=== PATIENT | female | born 1985 | race Caucasian/White ===

== ENCOUNTER 2016-10-24 00:10 | Outpatient (CLI) | payer OTHER, MEDICAID ==
[2016-10-24 00:39] LABS: APPEARANCE,URINE CLOUDY; BILIRUBIN,URINE NEGATIVE (NEGATIVE); GLUCOSE, URINE NEGATIVE (NEGATIVE); KETONES,URINE NEGATIVE (NEGATIVE); LEUKOCYTE ESTERASE,URINE LARGE (NEGATIVE); NITRITE,URINE NEGATIVE (NEGATIVE); PROTEIN,URINE NEGATIVE (NEGATIVE); URINE SPECIFIC GRAVITY 1.003; UROBILINOGEN,URINE NEGATIVE mg/dL (<2.0)
[2016-10-24 00:55] LABS: URINE BARBITURATES SCREEN NEGATIVE; URINE METHADONE SCREEN NEGATIVE; URINE OPIATES LOW NEGATIVE; URINE PHENCYCLIDINE SCREEN NEGATIVE
--- NOTE | 2016-10-24 02:27 | Non Stress Test Report ---
Non Stress Test Datetime Report Generated by CPN: 10/24/2016 02:26 DEMOGRAPHIC EGA NST: 37.1 INDICATION Indication for Study: Other Indication for Study (NST) Other: labor check URINE RESULTS Urine Protein, NST: Negative Urine Ketones - NST: Negative Urine Glucose - NST: Negative Urine Blood - NST: Negative MONITORING Monitor Explained: Monitor Explained; Test Explained; Patient Verbalized Understanding Time on Monitor: 10/24/2016 00:26 Time off Monitor: 10/24/2016 01:57 NST Duration: 91 NST INTERVENTIONS NST Interventions: PO Hydration; Reposition Patient; Vibroacoustic Stim; Other NST Interventions Other: juice, popsicle BABY A: [id number] BABY A Movement : Present Contraction Frequency : 1.5-8 FHR Baseline : 120 Accelerations : 15X15 Decelerations : None Variability : Moderate 6-25bpm NST Review: Meets Criteria for Reactive NST NST Review and Verified By : Laurie Ramey RN NST Results: Reactive NST REPORT Report Trigger: Send Report
--- NOTE | 2016-10-24 04:46 | L&D Current Admission ---
Current Admit Datetime Report Generated by CPN: 10/24/2016 04:45 ADMISSION INFORMATION Chief Complaint: Contractions (10/24/2016 00:35:Sirena Avendaño)
--- NOTE | 2016-10-24 04:46 | L&D General Admission ---
General Admit Datetime Report Generated by CPN: 10/24/2016 04:45 INFORMATION Patient Age: 31 (10/24/2016 00:11:QS system process) EDC: 11/13/2016 00:00 (10/24/2016 00:17:Sirena Avendaño) EDC: 11/13/2016 00:00 (10/24/2016 00:17:Amanda Ramey RN) EDC per Ultrasound: 11/13/2016 00:00 (10/24/2016 00:17:Amanda Ramey RN) : 4 (10/24/2016 00:17:Amanda Ramey RN) Para: 2 (10/24/2016 00:17:Amanda Ramey RN) Term: 2 (10/24/2016 00:17:Sirena Avendaño) : 0 (10/24/2016 00:17:Sirena Avendaño) Spontaneous Abortions: 1 (10/24/2016 00:17:Sirena Avendaño) Livin (10/24/2016 00:17:Sirena Avendaño) Cesareans: 0 (10/24/2016 00:17:Sirena Avendaño) VBACs: 0 (10/24/2016 00:17:Sirena Avednaño) Ectopic: 0 (10/24/2016 00:17:Sirena Avendaño) Multiple Births: 0 (10/24/2016 00:17:Sirena Avendaño) Baby, Number in Womb: 1 (10/24/2016 00:17:Sirena Avendaño) CARE Primary Hr Advisor: [facility] (10/24/2016 00:17:Sirena Avendaño) Adequate Care: Yes (10/24/2016 00:17:Sirena Avendaño) Height (in): 67 (10/24/2016 00:23:QS system process) ALLERGIES Medication Allergy: No (10/24/2016 00:17:Sirena Avendaño) Medication Allergies: No Known Allergies (09/10/2016) (10/24/2016 00:11:QS system process) Latex Allergy: No Latex Allergies (10/24/2016 00:17:Sirena Avendaño) Food Allergies: none (10/24/2016 00:17:Sirena Avendaño) Environmental Allergies: none2 (10/24/2016 00:17:Sirena Avendaño) COMMUNICATION Primary Language: Monegasque (10/24/2016 00:17:Sirena Avendaño) Medical Tx Preferred Language: Monegasque (10/24/2016 00:17:Sirena Avendaño) DEMOGRAPHICS Address: [address] [place] [id number] (10/24/2016 00:11:QS system process) Zipcode: [address] (10/24/2016 00:11:QS system process) Home (10/24/2016 00:11:QS system process) Work (10/24/2016 00:11:QS system process) SSN: [id number] (10/24/2016 00:11:QS system process) Next of Kin Name: CLIFF SILVA (10/24/2016 00:11:QS system process) Next of Kin (10/24/2016 00:11:QS system process) Next of Kin Relationship: SPO (10/24/2016 00:11:QS system process) Date of : 1985 (10/24/2016 00:11:QS system process) Marital Status: (10/24/2016 00:11:QS system process) Sex: Female (10/24/2016 00:11:QS system process) Race: (10/24/2016 00:11:QS system process) Ethnicity: Non- or (10/24/2016 00:11:QS system process) Orthodox: Other (10/24/2016 00:11:QS system process) DRUG AND ALCOHOL USE Alcohol: No (10/24/2016 00:17:Sirena Avendaño) Cigarettes: Current Everyday Smoker. [id number] (10/24/2016 00:17:Sirena Avendaño) Average Cigarettes Smoked: 5 - 10 per day (10/24/2016 00:17:Sirena Avendaño) Advised to Stop Smoking: Yes (10/24/2016 00:17:Sirena Avendaño) Marijuana: No (10/24/2016 00:17:Sirena Avendaño) Cocaine: No (10/24/2016 00:17:Sirena Avendaño) Other Illicit Drugs: No (10/24/2016 00:17:Sirena Avendaño) VACCINE HISTORY Influenza Vaccine: No (10/24/2016 00:17:Sirena Avendaño) Pneumococcal Vaccine: No (10/24/2016 00:17:Sirena Avendaño) Tetanus Vaccine: No (10/24/2016 00:17:Sirena Avendaño) Tdap Vaccine: Yes (10/24/2016 00:17:Sirena Avendaño) Tdap Date: 2015 (10/24/2016 00:17:Sirena Avendaño) Hepatitis B Vaccine: No (10/24/2016 00:17:Sirena Avendaño) Animal Husbandry Teacher: [facility] (10/24/2016 00:17:Sirena Avendaño) Feeding Preference: Both (10/24/2016 00:17:Sirena Avendaño) Circumcision: Yes (10/24/2016 00:17:Sirena Avendaño) Classes Attended: No (10/24/2016 00:17:Sirena Avendaño) Tubal Ligation: No (10/24/2016 00:17:Sirena Avendaño) Tubal Authorization Signed: N/A (10/24/2016 00:17:Sirena Avendaño) Consent: N/A (10/24/2016 00:17:Sirena Avendaño) Consent Signed: N/A (10/24/2016 00:17:Sirena Avendaño) Pain Management Plans: Epidural (10/24/2016 00:17:Sirena Avendaño) Plans for Labor and Delivery: None (10/24/2016 00:17:Sirena Avendaño) Support Person: slick (10/24/2016 00:17:Sirena Avendaño) Support Person Relationship: (10/24/2016 00:17:Sirena Avendaño) Other Relationship: friend (10/24/2016 00:17:Sirena Avendaño) Cultural/Spritual Practice: N/A (10/24/2016 00:17:Sirenanieves Avendaño) Spir/Cult Dietary Needs: N/A (10/24/2016 00:17:Sirena Avendaño) LIVING SITUATION/DISCHARGE PLAN Living Arrangements: House (10/24/2016 00:17:Sirena Avendaño) Adequate Access to:: Electric; Heat; Refrigeration; Plumbing/Running water; Phone; Transportation (10/24/2016 00:17:Sirena Avendaño) WIC Program: Yes (10/24/2016 00:17:Sirena Avendaño) Discharge Instrument 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 Person: cliff- (10/24/2016 00:17:Sirena Avendaño) Person to Help after Discharge: cliff- (10/24/2016 00:17:Sirena Avendaño) Currently Using Commun Resources: Yes (10/24/2016 00:17:Sirena Avendaño) Specify Current Resource Used: medicaid (10/24/2016 00:17:Sirena Avendaño) Car Seat for Discharge: Yes (10/24/2016 00:17:Sirenanieves Avendaño) LABS Blood Type: O Positive (10/24/2016 00:17:Amanda Ramey RN) Antibody Screen: negative (10/24/2016 00:17:Amanda Ramey RN) Group Beta Strep: negative (10/24/2016 00:17:Amanda Ramey RN) Gonorrhea: Negative (10/24/2016 00:17:Amanda Ramey RN) Chlamydia: Negative (10/24/2016 00:17:Amanda Ramey RN) RPR/VDRL: Nonreactive (10/24/2016 00:17:Amanda Ramey RN) HIV Exposure Test: Negative (10/24/2016 00:17:Amanda Ramey RN) Hepatitis B: Negative (10/24/2016 00:17:Amanda Ramey RN) Rubella: Immune (10/24/2016 00:17:Amanda Ramey RN) OB/PREVIOUS HISTORY Previous Procedures: Ultrasound; NST (10/24/2016 00:17:Sirena Avendaño) Current Procedures: Ultrasound; NST (10/24/2016 00:17:Sirena Avendaño) History of Previous : No (10/24/2016 00:17:Sirena Avendaño) History of Gestational Diabetes: Yes (10/24/2016 00:17:Sirena Avendaño) History of PIH: No (10/24/2016 00:17:Sirena Avendaño) History of Incompetent Cervix: No (10/24/2016 00:17:Sirena Avendaño) History of Placenta Previa/Abrup: Yes (10/24/2016 00:17:Sirena Avendaño) History of Macrosomia: No (10/24/2016 00:17:Sirena Avendaño) History of IUGR: No (10/24/2016 00:17:Sirena Avendaño) History of Hemorrhage: No (10/24/2016 00:17:Sirena Avendaño) History of Loss/Stillborn: No (10/24/2016 00:17:Sirena Avendaño) History of : No (10/24/2016 00:17:Sirena Avendaño) History of D (Rh) Sensitization: No (10/24/2016 00:17:Sirena Avendaño) History Recurrent Loss/Stillborn: No (10/24/2016 00:17:Sirena Avendaño) History Depression/PP Depression: Yes (10/24/2016 00:17:Sirena Avendaño) History of Uterine Anomaly/JT: No (10/24/2016 00:17:Sirena Avendaño) History of Infertility: No (10/24/2016 00:17:Sirena Avendaño) History of ART Treatment: No (10/24/2016 00:17:Sirena Avendaño) History of JT: No (10/24/2016 00:17:Sirena Avendaño) Comments Obstetrical History: G1: 2004 or 2005 3 month demise G2: 39 wks 2005 G3: VD 39 wks 2009 G4: Current, GDM, previa, placenta moved to 2.6 cm away from cx as of 09/22, GDM (10/24/2016 00:17:Amanda Ramey RN) MEDICAL HISTORY Med Hx Diabetes: Yes (10/24/2016 00:17:Sirena Avendaño) Diabetes Type: Gestational Diabetes (10/24/2016 00:17:Sirena Avendaño) Med Hx Hypertension: No (10/24/2016 00:17:Sirena Avendaño) Med Hx Heart Disease: No (10/24/2016 00:17:Sirena Avendaño) Med Hx Autoimmune Disorder: No (10/24/2016 00:17:Sirena Avendaño) Med Hx Kidney Disease/UTI: No (10/24/2016 00:17:Sirena Avendaño) Med Hx Neurologic/Epilepsy: No (10/24/2016 00:17:Sirena Avendaño) Med Hx Psychiatric Disorders: No (10/24/2016 00:17:Sirena Avendaño) Med Hx Hepatitis/Liver Disease: No (10/24/2016 00:17:Sirena Avendaño) Med Hx Varicosities/Phlebitis: No (10/24/2016 00:17:Sirena Avendaño) Med Hx Thyroid Dysfunction: No (10/24/2016 00:17:Sirena Avendaño) Med Hx Trauma/Violence: No (10/24/2016 00:17:Sirena Avendaño) Med Hx Blood Transfusion: No (10/24/2016 00:17:Sirena Avendaño) Med Hx Pulmonary (Asthma,TB): No (10/24/2016 00:17:Sirena Avendaño) Med Hx Breast: No (10/24/2016 00:17:Sirena Avendaño) Med Hx PLASTIC MAKER Surgery: No (10/24/2016 00:17:Sirena Avendaño) Med Hx Hospitalization/Surgery: No (10/24/2016 00:17:Sirena Avendaño) Med Hx Anesthetic Complications: No (10/24/2016 00:17:Sirena Avendaño) Med Hx Abnormal Pap Smear: Yes (10/24/2016 00:17:Amanda Ramey RN) Med Hx Abnormal Pap Smear: No (10/24/2016 00:17:Sirena Avendaño) Other Medical Diseases: No (10/24/2016 00:17:Sirena Avendaño) Med Hx Significant Family Hx: No (10/24/2016 00:17:Sirena Avendaño) Details of Med/Surg Hx: LEEP 2013 (10/24/2016 00:17:Amanda Ramey RN) Details of Med/Surg Hx: herpes genital warts (10/24/2016 00:17:Sirena Avendaño) INFECTIOUS HISTORY Inf Hx Gonorrhea: No (10/24/2016 00:17:Sirena Avendaño) Inf Hx Chlamydia: No (10/24/2016 00:17:Sirena Avendaño) Inf Hx Syphilis: No (10/24/2016 00:17:Sirenanieves Avendaño) Inf Hx HIV/AIDS: No (10/24/2016 00:17:Sirenanieves Avendaño) Inf Hx Human Papilloma Virus: No (10/24/2016 00:17:Sirenanieves Avendaño) Inf Hx Pt/Partner Genital Herpes: Yes (10/24/2016 00:17:Amanda Ramey RN) Inf Hx Tuberculosis/Exposure: No (10/24/2016 00:17:Sirenanieves Avendaño) Inf Hx Hepatitis B,C: No (10/24/2016 00:17:Sirenanieves Avendaño) Inf Hx Rash or Viral Illness: No (10/24/2016 00:17:Sirenanieves Avendaño) Details of Infectious Hx: Hx HSV, genital warts and condyloma covering labia/rectum/perineum (10/24/2016 00:17:Amanda Ramey RN) GENETIC HISTORY Gen Hx Age >=35 at AMY: No (10/24/2016 00:17:Sirena Avendaño) Gen Hx Thalassemia: No (10/24/2016 00:17:Sirena Avendaño) Gen Hx Congenital Heart Defect: No (10/24/2016 00:17:Sirena Avendaño) Gen Hx Neural Tube Defect: No (10/24/2016 00:17:Sirena Avendaño) Gen Hx Down's Syndrome: No (10/24/2016 00:17:Sirena Avendaño) Gen Hx Luis Alfredo-Sachs: No (10/24/2016 00:17:Sirena Avendaño) Gen Hx Kwasi: No (10/24/2016 00:17:Sirena Avendaoñ) Gen Hx Familial Dysautonomia: No (10/24/2016 00:17:Sirena Avendaño) Gen Hx Sickle Cell Disease/Trait: No (10/24/2016 00:17:Sirena Avendaño) Gen Hx Hemophilia/Blood Disorder: No (10/24/2016 00:17:Sirena Avendaño) Gen Hx Muscular Dystrophy: No (10/24/2016 00:17:Sirena Avendaño) Gen Hx Cystic Fibrosis: No (10/24/2016 00:17:Sirena Avendaño) Gen Hx Huntingtons Chorea: No (10/24/2016 00:17:Sirena Avendaño) Gen Hx Mental Retardation/Autism: No (10/24/2016 00:17:Sirena Avendaño) Gen Hx Tested for Fragile X: No (10/24/2016 00:17:Sirena Avendaño) Gen Hx Other Inher/Chromosomal: No (10/24/2016 00:17:Sirena Avendaño) Gen Hx Maternal Metabolic DO: No (10/24/2016 00:17:Sirena Avendaño) Gen Hx Pt Father or FOB Defect: No (10/24/2016 00:17:Sirena Avendaño) Gen Hx Other Genetic History: No (10/24/2016 00:17:Sirena Avendaño) Gen Hx Drugs/Meds since LMP: No (10/24/2016 00:17:Sirena Avendaño)
--- NOTE | 2016-10-24 04:46 | Antepartum Discharge Summary ---
Antepartum DC Datetime Report Generated by CPN: 10/24/2016 04:45 DIET/ACTIVITY/RESTRICTIONS Diet: Regular (10/24/2016 02:17:Katherine Dionisio, RN) Activity: Normal Activity (10/24/2016 02:17:Katherine Dionisio, RN) TEACHING/INSTRUCTIONS/REFERRALS Instructions Given To: patient (10/24/2016 02:17:Katherine Dionisio, RN) Instructions Understood: Patient Verbalized Understanding; Support Person Verbalized Understanding (10/24/2016 02:17:Katherine Nichole RN) Referrals: None (10/24/2016 02:17:Katherine Nichole RN) Educational Materials- Other: care notes on kick counts and the labor process (10/24/2016 02:17:Katherine Nichole RN) DISCHARGE INFORMATION Discharged AMA: No (10/24/2016 02:17:Katherine Nichole RN) Discharge Date/Time: 10/24/2016 02:07 (10/24/2016 02:17:Katherine Nichole RN) Discharged To: Home (10/24/2016 02:17:Katherine Nichole RN) Discharge Provider Name: Dr. Raza (10/24/2016 02:17:Katherine Nichole RN) Accompanied By: friend (10/24/2016 02:17:Katherine Nichole RN) Discharge Method: Ambulatory (10/24/2016 02:17:Katherine Nichole RN) Condition: Stable (10/24/2016 02:17:Katherine Nichole RN) FOLLOW UP INFORMATION Follow Up With: [facility] (10/24/2016 02:17:Katherine Nichole RN) Follow Up On: As Scheduled (10/24/2016 02:17:Katherine Nichole RN) Follow Up Phone Number: [facility] - (10/24/2016 02:17:Katherine Nichole RN) Comments: Pt. d/c to home ambulatory and in stable condition. Pt. states that her pain is manageable at this time and denies any needs for further medical intervention. Pt. states that she goes to the office this week. All pt belongings were taken with pt. Pt off unit and care relinquished at this time. (10/24/2016 02:17:Katherine Nichole RN)
--- NOTE | 2016-10-24 04:46 | L&D Admission Assessment ---
LD ADM ASMT Datetime Report Generated by CPN: 10/24/2016 04:45 PATIENT ASSESSMENT Assessment Type: Triage (10/24/2016 00:35:Sirena Avendaño) WEIGHT Weight (lb): 222 (10/24/2016 00:23:QS system process) Weight (kg): 100.9 (10/24/2016 00:23:QS system process) PAIN Pain Scale: 1 (10/24/2016 00:35:Sirena Avendaño) Pain Presence: Intermittent (10/24/2016 00:35:Sirena Avendaño) Pain Type: Cramping (10/24/2016 00:35:Sirena Avendaño) Pain Location: Abdomen; Back (10/24/2016 00:35:Sirena Avendaño) Pain Goal: 0 (10/24/2016 00:35:Sirena Avendaño) Pain Related to Contraction: Yes (10/24/2016 00:35:Sirena Avendaño) CONTRACTIONS Frequency (min): 4.5-5.5 (10/24/2016 01:57:Katherine Nichole RN) Frequency (min): iregg (10/24/2016 01:30:Katherine Nichole, RN) Frequency (min): 1.5-8 (10/24/2016 01:00:Katherine Nichole, RN) Duration (sec): 50-90 (10/24/2016 01:57:Katherine Nichole RN) Duration (sec): 40-80 (10/24/2016 01:30:Katherine Nichoel RN) Duration (sec): 40-70 (10/24/2016 01:00:Katherine Nichole RN) Quality: Mild (10/24/2016 01:57:Katherine Nichole RN) Quality: Mild (10/24/2016 01:30:Katherine Nichole RN) Quality: Mild (10/24/2016 01:23:Amanda Ramey RN) Quality: Mild (10/24/2016 01:00:Katherine iNchole RN) Pattern: Normal: <= 5 Contractions in 10 Minutes (10/24/2016 01:57:Katherine Nichole RN) Pattern: Normal: <= 5 Contractions in 10 Minutes (10/24/2016 01:30:Katherine Nichole RN) Pattern: Normal: <= 5 Contractions in 10 Minutes (10/24/2016 01:00:Katherine Nichole RN) Resting Tone Niotaze: Relaxed (10/24/2016 01:57:Katherine Nichole RN) Resting Tone Niotaze: Relaxed (10/24/2016 01:30:Katherine Nichole RN) Resting Tone Niotaze: Relaxed (10/24/2016 01:00:Katherine Nichole RN) Contraction Comments: pt. states she is having a ctn here (10/24/2016 01:11:Katherine Nichole RN) VAGINAL EXAM Dilatation (cm): 1.0 (10/24/2016 01:51:Katherine Nichole RN) Dilatation (cm): 1.0 (10/24/2016 00:50:Sirenanieves Avendaño) Effacement (%): 50 (10/24/2016 01:51:Katherine Nichole RN) Effacement (%): 50 (10/24/2016 00:50:Sirena Avendaño) Station: -3 (10/24/2016 01:51:Katherine Nichole RN) Station: -3 (10/24/2016 00:50:Sirena Avendaño) NEURO Level of Consciousness: Fully Conscious (10/24/2016 00:35:Sirena Avendaño) DTR's/Clonus: DTRs 2+; No Clonus (10/24/2016 00:35:Sirena Avendaño) Headache: Denies (10/24/2016 00:35:Sirena Avendaño) Dizziness: No (10/24/2016 00:35:Sirena Avendaño) Blurred Vision: No (10/24/2016 00:35:Sirena Avendaño) Extremity Numbness/Tingling : None (10/24/2016 00:35:Sirena Avendaño) Extremity Movement: Full Range of Motion (10/24/2016 00:35:Sirena Avendaño) CARDIOVASCULAR Heart Rhythm: Regular (10/24/2016 00:35:Sirena Avendaño) [place]ailbeds: [place] (10/24/2016 00:35:Sirena Avendaño) Capillary Refill: Less than 3 Seconds (10/24/2016 00:35:Sirena Avendaño) Lower Extremities Edema: Bilateral Lower Extremities (10/24/2016 00:35:Sirena Avendaño) Lower Extremities Edema Degree: 1+ (10/24/2016 00:35:Sirena Avendaño) Upper Extremities Edema: Bilateral Upper Extremities (10/24/2016 00:35:Sirena Avendaño) Upper Extremities Edema Degree: 1+ (10/24/2016 00:35:Sirena Avendaño) Facial Edema: None (10/24/2016 00:35:Sirena Avendaño) DVT RISK ASSESSMENT DVT Risk Age: Age less than 41 years (10/24/2016 00:35:Sirena Avendaño) DVT Risk BMI: BMI<31 (10/24/2016 00:35:Sirena Avendaño) DVT Risk Surgery: None Applicable (10/24/2016 00:35:Sirena Avendaño) DVT Risk Other: Women Only- or (<1 month) (10/24/2016 00:35:Sirena Avendaño) DVT Risk Total: 1 (10/24/2016 00:35:QS system process) DVT Risk Text: Low Risk (<10%) No specific measures, early ambulation (10/24/2016 00:35:QS system process) RESPIRATORY Respiratory Effort: Unlabored (10/24/2016 00:35:Sirena Avendaño) Breath Sounds, Left: Clear and Equal (10/24/2016 00:35:Sirena Avendaño) Breath Sounds, Right: Clear and Equal (10/24/2016 00:35:Sirena Avendaño) Cough Productivity: None (10/24/2016 00:35:Sirena Avendaño) GASTROINTESTINAL Nausea/Vomiting: Denies (10/24/2016 00:35:Sirena Avendaño) Bowel Sounds: Normoactive (10/24/2016 00:35:Sirena Avendaño) RUQ Epigastric Pain: Denies (10/24/2016 00:35:Sirena Avendaño) Response to Antacids: Pain Relieved (10/24/2016 00:35:Sirena Avendaño) Bowel Patterns: Soft, Formed Stool (10/24/2016 00:35:Sirena Avendaño) Hemorrhoids: None (10/24/2016 00:35:Sirena Avendaño) Diet Type: Regular diet (10/24/2016 00:35:Sirena Avendaño) Last Meal: 10/23/2016 21:00 (10/24/2016 00:35:Sirena Avendaño) GENITOURINARY Bladder: Nondistended (10/24/2016 00:35:Sirena Avendaño) Catheter: [place] to Bedside Bag (10/24/2016 00:35:Sirena Avendaño) Frequency of Urination: No (10/24/2016 00:35:Sirena Avendaño) Urination Burning: No (10/24/2016 00:35:Sirena Avendaño) CVA Tenderness: No (10/24/2016 00:35:Sirena Avendaño) Vaginal Bleeding: None (10/24/2016 00:35:Sirena Avendaño) Vaginal Discharge Amount: None (10/24/2016 00:35:Sirena Avendaño) INTEGUMENTARY Skin Color: Normal for Race (10/24/2016 00:35:Sirena Avendaño) Skin Temperature: Warm (10/24/2016 00:35:Sirena Avendaño) Skin Moisture: Dry (10/24/2016 00:35:Sirena Avendaño) Surgical Scars: none (10/24/2016 00:35:Sirena Avendaño) Body Piercings/Tattoos: tatoos x7 ears nose tongue pierced (10/24/2016 00:35:Sirena Avendaño) BERENICE SKIN ASSESSMENT Berenice Scale Sensory Perception: No Impairment- Responds to verbal commands. Has no sensory deficit which would limit ability to feel or voice pain or discomfort (10/24/2016 00:35:Sirena Avendaño) Berenice Scale Moisture: Rarely Moist- Skin is usually dry. Linen only requires changing at routine intervals (10/24/2016 00:35:Sirena Avendaño) Berenice Scale Activity: Walks Frequently- Walks outside the room at least twice a day and inside room at least every 2 hours during the day. (10/24/2016 00:35:Sirena Avendaño) Berenice Scale Mobility: No Limitations- Makes major and frequent changes in position without assistance (10/24/2016 00:35:Sirena Avendaño) Berenice Scale Nutrition: Excellent- Eats most of every meal. Never refuses a meal. Usually eats a total of 4 or more servings of meat and dairy products. Occasionally eats between meals. Does not require supplementation (10/24/2016 00:35:Sirena Avendaño) Berenice Scale Friction and Shear: No Apparent Problem- Moves in bed and in chair independently and has sufficient muscle strength to lift up completely during move. Maintains good position in bed or chair at all times (10/24/2016 00:35:Sirena Avendaño) Berenice Scale Total: 23 (10/24/2016 00:35:QS system process) Berenice Scale Risk: No Risk of Pressure Ulcer Noted at this Time (10/24/2016 00:35:QS system process) SUPPORT Family Support: Significant Other supportive, at bedside frequently (10/24/2016 00:35:Sirena Avendaño) Emotional State: Calm/Relaxed (10/24/2016 00:35:Sirena Avendaño) SAFETY Call [place] Within Reach: Yes (10/24/2016 00:35:Sirena Avendaño) Side Rails Up: Yes (10/24/2016 00:35:Sirena Avendaño) Bed Wheels Locked: Yes (10/24/2016 00:35:Sirena Avendaño) Arm Bands Present: Yes (10/24/2016 00:35:Sirena Avendaño) Isolation: [place] (10/24/2016 00:35:Sirena Avendaño) FALL SCREEN Fall Risk History of Falling: (0) No (10/24/2016 00:35:Sirena Avendaño) Fall Risk Secondary Diagnosis: (0) No (10/24/2016 00:35:Sirena Avendaño) Fall Risk Ambulatory Aid: (0) None/Bedrest/Wheelchair/Nurse Assist (10/24/2016 00:35:Sirena Avendaño) Fall Risk IV Therapy: (0) No (10/24/2016 00:35:Sirena Avendaño) Fall Risk Gait: (0) Normal/Bedrest/Immobile (10/24/2016 00:35:Sirena Avendaño) Fall Risk Mental Status: (0) Oriented to Own Ability (10/24/2016 00:35:Sirena Avendaño) Fall Risk Score: 0 (10/24/2016 00:35:QS system process) Fall Risk Score Definition: No Risk: No action required (10/24/2016 00:35:QS system process) RECENT TRAVEL/INFECTIOUS DISEASE Recent Exp Communicable Disease: No (10/24/2016 00:35:Sirena Avendaño) Cough or Fever: No (10/24/2016 00:35:Sirena Avendaño) Foreign Travel Past 10 Days: No (10/24/2016 00:35:Sirena Avendaño) Open Wounds or Sores: No (10/24/2016 00:35:Sirena Avendaño) Prior Antibiotic Resistance Tx: No (10/24/2016 00:35:Sirena Avendaño) BABY A FHR Baseline Rate (bpm) Baby A: 120 (10/24/2016 01:57:Katherine Nichole RN) FHR Baseline Rate (bpm) Baby A: 120 (10/24/2016 01:30:Katherine Nichole RN) FHR Baseline Rate (bpm) Baby A: 120 (10/24/2016 01:00:Katherine Nichole RN) Variability Baby A: Moderate 6-25 bpm (10/24/2016 01:57:Katherine Nichole RN) Variability Baby A: Moderate 6-25 bpm (10/24/2016 01:30:Katherine Nichole RN) Variability Baby A: Moderate 6-25 bpm (10/24/2016 01:00:Katherine Nichole RN) Accelerations Baby A: 15X15 (10/24/2016 01:57:Katherine Nichole RN) Accelerations Baby A: 15X15 (10/24/2016 01:30:Katherine Nichole RN) Accelerations Baby A: None (10/24/2016 01:00:Katherine Ncihole RN) Decelerations Baby A: None (10/24/2016 01:57:Katherine Nichole RN) Decelerations Baby A: None (10/24/2016 01:00:Katherine Nichole RN)
--- NOTE | 2016-10-24 04:46 | L&D Flow Sheet ---
LD Flowsheet Datetime Report Generated by CPN: 10/24/2016 04:45 Datetime: 10/24/2016 02:07 Communication Comments: pt. d/c'd to home at this time. see discharge summary for more information (Katherine Shahco, RN) Datetime: 10/24/2016 02:04 Communication Comments: Care notes taught and reviewed on kick counts and the labor process. Pt. able to perform teachback with no difficulties noted and denied any questions or concerns at this time (Katherine Dionisio, RN) Datetime: 10/24/2016 01:57 Uterine Activity Monitor Mode: External (Katherine Dionisio, RN) Frequency (min): 4.5-5.5 (Katherine Dionisio, RN) Quality: Mild (Katherine Dionisio, RN) Duration (sec): 50-90 (Katherine Dionisio, RN) Duration Criteria: Less than Two 120 Second Contractions (Katherine Dionisio, RN) Pattern: Normal: <= 5 Contractions in 10 Minutes (Katherine Dionisio, RN) Resting Tone (Palpate): Relaxed (Katherine Dionisio, RN) Assessment A Monitor Mode: External US (Katherine Dionisio, RN) FHR Baseline Rate : 120 (Katherine Dionisio, RN) Variability: Moderate 6-25 bpm (Katherine Dionisio, RN) Accelerations: 15X15 (Katherine Dionisio, RN) Decelerations: None (Katherine Dionisio, RN) Communication Comments: Pt. made aware of POC at this time and monitors removed for d/c to home. pt. denies any questions or concerns at this time (Katherine Dionisio, RN) Datetime: 10/24/2016 01:55 Communication Comments: Dr. Raza called and notififed of SVE, FHT, and pt. stating her ctn feel stronger but she states she does not need anything for pain. New orders received to d/c pt. to home at this time (Katherine Dionisio, RN) Datetime: 10/24/2016 01:51 Vaginal Exam Dilatation (cm): 1.0 (Katherine Dionisio, RN) Effacement (%): 50 (Katherine Dionisio, RN) Station: -3 (Katherine Dionisio, RN) Exam by: KDipti Dionisio, RN (Katherine Dionisio, RN) Vaginal Bleeding: None (Katherine Dionisio, RN) Cervix, Consistency: Firm (Katherine Dionisio, RN) Cervix, Position: Posterior (Katherine Dionisio, RN) Datetime: 10/24/2016:30 Vital Signs NBP Sys/Dulce/Mean (mmHg): 123 (QS system process) : 71 (QS system process) : 89 (QS system process) Pulse: 69 (QS system process) Uterine Activity Monitor Mode: External; Palpation (Katherine Dionisio, RN) Frequency (min): iregg (Katherine Dionisio, RN) Quality: Mild (Katherine Dionisio, RN) Duration (sec): 40-80 (Katherine Dionisio, RN) Duration Criteria: Less than Two 120 Second Contractions (Katherine Dionisio, RN) Pattern: Normal: <= 5 Contractions in 10 Minutes (Katherine Dionisio, RN) Resting Tone (Palpate): Relaxed (Katherine Dionisio, RN) Assessment A Monitor Mode: External US (Katherine Dionisio, RN) FHR Baseline Rate : 120 (Katherine Dionisio, RN) Variability: Moderate 6-25 bpm (Katherine Dionisio, RN) Accelerations: 15X15 (Katherine Dionisio, RN) Comments: broken tracing unable to determine if decel noted (Katherien Dionisio, RN) Datetime: 10/24/2016 01:24 Monitor Interventions for UA: [place] Adjusted (Katherine Dionisio, RN) Datetime: 10/24/2016 01:23 Uterine Activity Monitor Mode: Palpation (Amanda Karoline, RN) Quality: Mild (Amanda Karoline, RN) Datetime: 10/24/2016 01:11 Monitor Interventions for UA: [place] Adjusted (Katherine Dionisio, RN) Contraction Comments: pt. states she is having a ctn here (Katherine Dionisio, RN) Datetime: 10/24/2016 01:00 Uterine Activity Monitor Mode: External; Palpation (Katherine Dionisio, RN) Frequency (min): 1.5-8 (Katherine Dionisio, RN) Quality: Mild (Katherine Dionisio, RN) Duration (sec): 40-70 (Katherine Dionisio, RN) Duration Criteria: Less than Two 120 Second Contractions (Katherine Dionisio, RN) Pattern: Normal: <= 5 Contractions in 10 Minutes (Katherine Dionisio, RN) Resting Tone (Palpate): Relaxed (Katherine Dionisio, RN) Assessment A Monitor Mode: External US (Katherine Dionisio, RN) FHR Baseline Rate : 120 (Katherine Dionisio, RN) Variability: Moderate 6-25 bpm (Katherine Dionisio, RN) Accelerations: None (Katherine Dionisio, RN) Decelerations: None (Katherine Dionisio, RN) Datetime: 10/24/2016 00:59 Patient Care Patient Position/Activity: Left Lateral (Katherine Dionisio, RN) Patient Care Comments: apple juice provided, vibro acoustic stim provided, pt. eating popsicle at this time (Katherine Dionisio, RN) Datetime: 10/24/2016 00:58 Vital Signs NBP Sys/Dulce/Mean (mmHg): 116 (QS system process) : 57 (QS system process) : 82 (QS system process) Pulse: 78 (QS system process) Datetime: 10/24/2016 00:50 Vaginal Exam Dilatation (cm): 1.0 (Sirena Avendaño) Effacement (%): 50 (Sirena Avendaño) Station: -3 (Sirena Avendaño) Exam by: Chelly Avendaño Rn (Sirena Avendaño) Datetime: 10/24/2016 00:45 Communication Provider Notified (Name): Dr Raza notified of the patient 37.1 presented with contractions. The patient has a history of placenta previa which the patient states was cleared. Orders recieved to check the patiets cervix. (Sirena Avendaño) Datetime: 10/24/2016 00:40 I/O Interventions: Popsicle; Clear Liquids Given (Sirena Avendaño) Datetime: 10/24/2016 00:35 Pain Pain Scale: 1 (Sirena Avendaño) Pain Presence: Intermittent (Sirena Avendaño) Pain Type: Cramping (Sirena Avendaño) Pain Location: Abdomen; Back (Sirena Avendaño) Pain Goal: 0 (Sirena Avendaño) Pain Relief Measures: Comfort Measures (Sirena Avendaño) Pain Coping: Talking Through Contractions (Sirena Avendaño) Vaginal Bleeding: None (Sirena Avendaño) Maternal Assessment Level of Consciousness: Fully Conscious (Sirena Avendaño) DTR's/Clonus: DTRs 2+; No Clonus (Sirena Avendaño) Headache: Denies (Sirena Avendaño) Breath Sounds, Left: Clear and Equal (Sirena Avendaño) Breath Sounds, Right: Clear and Equal (Sirena Avendaño) Nausea/Vomiting: Denies (Sirena Avendaño) RUQ Epigastric Pain: Denies (Sirena Avendaño) Patient Care Patient Position/Activity: Right Lateral (Sirena Avendaño) Teaching Instructional Method: Verbal (Sirena Avendaño) Plan of Care: Plan of Care Discussed (Sirena Avendaño) Unit Routine: [place] to Room; Call Jiménez; Bed; Monitoring (Sirena Avendaño) Datetime: 10/24/2016 00:27 Vital Signs NBP Sys/Dulce/Mean (mmHg): 131 (QS system process) : 64 (QS system process) : 89 (QS system process) Pulse: 94 (QS system process) Datetime: 10/24/2016 00:18 Patient Care Comments: patient to the unit for labor check (Sirena Avendaño)
--- NOTE | 2016-10-24 04:46 | L&D Discharge Summary ---
OB Discharge Summary Datetime Report Generated by CPN: 10/24/2016 04:45 DISCHARGE DIAGNOSIS Diagnosis/Symptoms: False Labor Number of Babies in Womb: 1 Parity: 2 DIET/ACTIVITY/RESTRICTIONS Diet: Regular Activity: Normal Activity TEACHING/INSTRUCTIONS/REFERRALS Instructions Given To: patient Instructions Understood: Patient Verbalized Understanding; Support Person Verbalized Understanding Referrals: None Educational Materials- Other: care notes on kick counts and the labor process DISCHARGE INFORMATION Discharged AMA: No Discharge Date/Time: 10/24/2016 02:07 Discharged To: Home Discharge Provider Name: Dr. Raza Accompanied By: friend Discharge Method: Ambulatory Condition: Stable FOLLOW UP INFORMATION Follow Up With: [facility] Follow Up On: As Scheduled Follow Up Phone Number: [facility] - Comments: Pt. d/c to home ambulatory and in stable condition. Pt. states that her pain is manageable at this time and denies any needs for further medical intervention. Pt. states that she goes to the office this week. All pt belongings were taken with pt. Pt off unit and care relinquished at this time.
== END 2016-10-24 02:07 | disposition home or self-care (01) ==
LOC: LC 00:10
PROVIDERS: ATTEND Obstetrics & Gynecology
PROC: 4A1HXCZ Monitoring of Products of Conception, Cardiac Rate, External Approach (ICD-10-PCS; principal; 2016-10-24)
DX: O47.1 False labor at or after 37 completed weeks of gestation (principal); Z3A.37 37 weeks gestation of pregnancy
CPT/HCPCS: 80307; 81005

== ENCOUNTER 2016-10-25 09:34 | Outpatient (CLI) | payer OTHER, MEDICAID ==
--- NOTE | 2016-10-25 10:00 | L&D Flow Sheet ---
LD Flowsheet Datetime Report Generated by CPN: 10/25/2016 10:00 Datetime: 10/25/2016 09:52 NBP Sys/Dulce/Mean (mmHg): 121 (QS system process) : 71 (QS system process) : 90 (QS system process) Pulse: 81 (QS system process) Respirations: 16 (Josiane Hilario RN) Temperature (F): 97.5 (Josiane Hilario RN) Temperature (C): 36.4 (QS system process) Pain Scale: 2 (Josiane Hilario RN) Pain Presence: Intermittent (Josiane Hilario RN) Pain Type: Contraction (Josiane Hilario RN) Pain Location: Back (Josiane Hilario RN) Pain Relief Measures: Comfort Measures (Josiane Hilario RN) Datetime: 10/25/2016 09:50 Patient Position/Activity: Left Lateral (Josiane Hilario RN) I/O Interventions: Clear Liquids Given (Josiane Hilario RN)
--- NOTE | 2016-10-25 10:34 | Non Stress Test Report ---
Non Stress Test Datetime Report Generated by CPN: 10/25/2016 10:34 DEMOGRAPHIC EGA NST: 37.2 INDICATION Indication for Study: Diabetes Mellitus; Ordered by Provider MONITORING Monitor Explained: Monitor Explained; Test Explained; Patient Verbalized Understanding Time on Monitor: 10/25/2016 09:50 Time off Monitor: 10/25/2016 10:13 NST Duration: 23 NST INTERVENTIONS NST Interventions: PO Hydration Physician Notified NST: A Emmel CNM BABY A Movement : Present Contraction Frequency : Irr FHR Baseline : 140 Accelerations : 15X15 Decelerations : None Variability : Moderate 6-25bpm NST Review: Meets Criteria for Reactive NST NST Review and Verified By : Walter Hilario RN NST Results: Reactive NST REPORT Report Trigger: Send Report
--- NOTE | 2016-10-25 10:46 | L&D Flow Sheet ---
LD Flowsheet Datetime Report Generated by CPN: 10/25/2016 10:45 Datetime: 10/25/2016 10:11 Communication Comments: D/C order received per A. Emmel CNM (Josiane Hilario RN) Datetime: 10/25/2016 09:52 NBP Sys/Ducle/Mean (mmHg): 121 (QS system process) : 71 (QS system process) : 90 (QS system process) Pulse: 81 (QS system process) Respirations: 16 (Josiane Hilario RN) Temperature (F): 97.5 (Josiane Hilario RN) Temperature (C): 36.4 (QS system process) Pain Scale: 2 (Josiane Hilario RN) Pain Presence: Intermittent (Josiane Hilario RN) Pain Type: Contraction (Josiane Hilario RN) Pain Location: Back (Josiane Hilario RN) Pain Relief Measures: Comfort Measures (Josiane Hilario RN) Datetime: 10/25/2016 09:50 Patient Position/Activity: Left Lateral (Josiane Hilario RN) I/O Interventions: Clear Liquids Given (Josiane Hilario RN)
--- NOTE | 2016-10-25 10:46 | L&D Discharge Summary ---
OB Discharge Summary Datetime Report Generated by CPN: 10/25/2016 10:45 DISCHARGE DIAGNOSIS Diagnosis/Symptoms: Reassuring Surveillance - Annotate Details Gestation: 37.1 Number of Babies in Womb: 1 Parity: 2 DIET/ACTIVITY/RESTRICTIONS Diet: Regular Activity: Normal Activity TEACHING/INSTRUCTIONS/REFERRALS Instructions Given To: Patient Instructions Understood: Patient Verbalized Understanding; Support Person Verbalized Understanding Referrals: None Educational Materials- Other: Kick Counts DISCHARGE INFORMATION Discharged AMA: No Discharge Date/Time: 10/25/2016 10:16 Discharged To: Home Discharge Provider Name: Walter Patricia CNM Accompanied By: FOB Discharge Method: Ambulatory Condition: Stable FOLLOW UP INFORMATION Follow Up With: [facility] Follow Up On: As Scheduled Follow Up Phone Number: [email or web address] - Comments: Pt. d/c to home ambulatory and in stable condition. Pt. states that her pain is manageable at this time and denies any needs for further medical intervention. Pt. states that she goes to the office this week. All pt belongings were taken with pt. Pt off unit and care relinquished at this time.
--- NOTE | 2016-10-25 10:46 | L&D Current Admission ---
Current Admit Datetime Report Generated by CPN: 10/25/2016 10:45 ADMISSION INFORMATION Chief Complaint: Contractions (10/24/2016 00:35:Sirena Avendaño)
--- NOTE | 2016-10-25 10:46 | Antepartum Discharge Summary ---
Antepartum DC Datetime Report Generated by CPN: 10/25/2016 10:45 DIET/ACTIVITY/RESTRICTIONS Diet: Regular (10/25/2016 10:33:Josiane Hilario RN) Diet: Regular (10/24/2016 02:17:Katherine Dionisio, RN) Activity: Normal Activity (10/25/2016 10:33:Josiane Hilario RN) Activity: Normal Activity (10/24/2016 02:17:Katherine Dionisio, RN) TEACHING/INSTRUCTIONS/REFERRALS Instructions Given To: Patient (10/25/2016 10:33:Josiane Hilario RN) Instructions Given To: patient (10/24/2016 02:17:Katherine Nichole RN) Instructions Understood: Patient Verbalized Understanding; Support Person Verbalized Understanding (10/25/2016 10:33:Josiane Hilario RN) Instructions Understood: Patient Verbalized Understanding; Support Person Verbalized Understanding (10/24/2016 02:17:Katherine Nichole RN) Referrals: None (10/25/2016 10:33:Josiane Hilario RN) Referrals: None (10/24/2016 02:17:Katherine Nichole RN) Educational Materials- Other: Kick Counts (10/25/2016 10:33:Josiane Hilario RN) Educational Materials- Other: care notes on kick counts and the labor process (10/24/2016 02:17:Katherine Nichole RN) DISCHARGE INFORMATION Discharged AMA: No (10/24/2016 02:17:Katherine Nichole RN) Discharge Date/Time: 10/25/2016 10:16 (10/25/2016 10:33:Josiane Hilario RN) Discharge Date/Time: 10/24/2016 02:07 (10/24/2016 02:17:Katherine Nichole RN) Discharged To: Home (10/25/2016 10:33:Josiane Hilario RN) Discharged To: Home (10/24/2016 02:17:Katherine Nichole RN) Discharge Provider Name: Walter Patricia CNM (10/25/2016 10:33:Josiane Hilario RN) Discharge Provider Name: Dr. Raza (10/24/2016 02:17:Katherine Nichole RN) Accompanied By: FOB (10/25/2016 10:33:Josiane Hilario RN) Accompanied By: friend (10/24/2016 02:17:Katherine Nichole RN) Discharge Method: Ambulatory (10/25/2016 10:33:Josiane Hilario RN) Discharge Method: Ambulatory (10/24/2016 02:17:Katherine Nichole RN) Condition: Stable (10/25/2016 10:33:Josiane Hilario RN) Condition: Stable (10/24/2016 02:17:Katherine Nichole RN) FOLLOW UP INFORMATION Follow Up With: [facility] (10/25/2016 10:33:Josiane Hilario RN) [facility] (10/24/2016 02:17:Katherine Nichole RN) Follow Up On: As Scheduled (10/25/2016 10:33:Josiane Hilario RN) Follow Up On: As Scheduled (10/24/2016 02:17:Katherine Nichole RN) Follow Up Phone Number: [facility] - (10/25/2016 10:33:Josiane Hilario RN) [facility] (10/24/2016 02:17:Katherine Nichole RN) Comments: Pt. d/c to home ambulatory and in stable condition. Pt. states that her pain is manageable at this time and denies any needs for further medical intervention. Pt. states that she goes to the office this week. All pt belongings were taken with pt. Pt off unit and care relinquished at this time. (10/24/2016 02:17:Katherine Nichole RN)
--- NOTE | 2016-10-25 10:46 | L&D General Admission ---
General Admit Datetime Report Generated by CPN: 10/25/2016 10:45 INFORMATION Patient Age: 31 (10/24/2016 00:11:QS system process) EDC: 11/13/2016 00:00 (10/24/2016 00:17:Sirena Avendaño) EDC: 11/13/2016 00:00 (10/24/2016 00:17:Amanda Ramey RN) EDC per Ultrasound: 11/13/2016 00:00 (10/24/2016 00:17:Amanda Ramey RN) : 4 (10/24/2016 00:17:Amanda Ramey RN) Para: 2 (10/25/2016 10:33:Josiane Hilario RN) Para: 2 (10/24/2016 00:17:Amanda Ramey RN) Term: 2 (10/24/2016 00:17:Sirena Avendaño) : 0 (10/24/2016 00:17:Sirena Avendaño) Spontaneous Abortions: 1 (10/24/2016 00:17:Sirena Avendaño) Livin (10/24/2016 00:17:Sirena Avendaño) Cesareans: 0 (10/24/2016 00:17:Sirena Avendaño) VBACs: 0 (10/24/2016 00:17:Sirena Avendaño) Ectopic: 0 (10/24/2016 00:17:Sirena Avendaño) Multiple Births: 0 (10/24/2016 00:17:Sirena Avendaño) Baby, Number in Womb: 1 (10/25/2016 10:33:Josiane Hilario RN) Baby, Number in Womb: 1 (10/24/2016 00:17:Sirena Avendaño) CARE Primary Field Placement Director: [facility] (10/24/2016 00:17:Sirena Avendaño) Adequate Care: Yes (10/24/2016 00:17:Sirena Avendaño) Height (in): 67 (10/25/2016 09:55:QS system process) Height (in): 67 (10/24/2016 00:23:QS system process) ALLERGIES Medication Allergy: No (10/24/2016 00:17:Sirena Avendaño) Medication Allergies: No Known Allergies (10/25/2016) (10/25/2016 09:54:QS system process) Medication Allergies: No Known Allergies (09/10/2016) (10/24/2016 00:11:QS system process) Latex Allergy: No Latex Allergies (10/24/2016 00:17:Sirena Avendaño) Food Allergies: none (10/24/2016 00:17:Sirena Avendaño) Environmental Allergies: none2 (10/24/2016 00:17:Sirena Avendaño) COMMUNICATION Primary Language: Cuban (10/24/2016 00:17:Sirena Avendaño) Medical Tx Preferred Language: Cuban (10/24/2016 00:17:Sirena Avendaño) DEMOGRAPHICS Address: [address] [place] [id number] (10/24/2016 00:11:QS system process) Zipcode: [address] (10/24/2016 00:11:QS system process) Home (10/24/2016 00:11:QS system process) Work (10/24/2016 00:11:QS system process) SSN: [id number] (10/24/2016 00:11:QS system process) Next of Kin Name: CLIFF SILVA (10/24/2016 00:11:QS system process) Next of Kin (10/24/2016 00:11:QS system process) Next of Kin Relationship: SPO (10/24/2016 00:11:QS system process) Date of : 1985 (10/24/2016 00:11:QS system process) Marital Status: (10/24/2016 00:11:QS system process) Sex: Female (10/24/2016 00:11:QS system process) Race: (10/24/2016 00:11:QS system process) Ethnicity: Non- or (10/24/2016 00:11:QS system process) Taoism: Other (10/24/2016 00:11:QS system process) DRUG AND ALCOHOL USE Alcohol: No (10/24/2016 00:17:Sirena Avendaño) Cigarettes: Current Everyday Smoker. [id number] (10/24/2016 00:17:Sirena Avendaño) Average Cigarettes Smoked: 5 - 10 per day (10/24/2016 00:17:Sirena Avendaño) Advised to Stop Smoking: Yes (10/24/2016 00:17:Sirena Avendaño) Marijuana: No (10/24/2016 00:17:Sirena Avendaño) Cocaine: No (10/24/2016 00:17:Sirena Avendaño) Other Illicit Drugs: No (10/24/2016 00:17:Sirena Avendaño) VACCINE HISTORY Influenza Vaccine: No (10/24/2016 00:17:Sirena Avendaño) Pneumococcal Vaccine: No (10/24/2016 00:17:Sirena Avendaño) Tetanus Vaccine: No (10/24/2016 00:17:Sirena Avendaño) Tdap Vaccine: Yes (10/24/2016 00:17:Sirena Avendaño) Tdap Date: 2015 (10/24/2016 00:17:Sirena Avendaño) Hepatitis B Vaccine: No (10/24/2016 00:17:Sirena Avendaño) Center Director Lead Teacher: [facility] (10/24/2016 00:17:Sirena Avendaño) Feeding Preference: Both (10/24/2016 00:17:Sirena Avendaño) Circumcision: Yes (10/24/2016 00:17:Sirena Avendaño) Classes Attended: No (10/24/2016 00:17:Sirena Avendaño) Tubal Ligation: No (10/24/2016 00:17:Sirena Avendaño) Tubal Authorization Signed: N/A (10/24/2016 00:17:Sirena Avendaño) Consent: N/A (10/24/2016 00:17:Sirena Avendaño) Consent Signed: N/A (10/24/2016 00:17:Sirena Avendaño) Pain Management Plans: Epidural (10/24/2016 00:17:Sirena Avendaño) Plans for Labor and Delivery: None (10/24/2016 00:17:Sirena Avendaño) Support Person: slick (10/24/2016 00:17:Sirena Avendaño) Support Person Relationship: (10/24/2016 00:17:Sirena Avendaño) Other Relationship: friend (10/24/2016 00:17:Sirena Avendaño) Cultural/Spritual Practice: N/A (10/24/2016 00:17:Sirena Avendaño) Spir/Cult Dietary Needs: N/A (10/24/2016 00:17:Sirena Avendaño) LIVING SITUATION/DISCHARGE PLAN Living Arrangements: House (10/24/2016 00:17:Sirena Avendaño) Adequate Access to:: Electric; Heat; Refrigeration; Plumbing/Running water; Phone; Transportation (10/24/2016 00:17:Sirena Avendaño) WIC Program: Yes (10/24/2016 00:17:Sirena Avendaño) Discharge Web Development Intern Person: [facility] (10/24/2016 00:17:Sirena Avendaño) Person to Help after Discharge: [facility] (10/24/2016 00:17:Sirena Avendaño) Currently Using Commun Resources: Yes (10/24/2016 00:17:Sirena Avendaño) Specify Current Resource Used: medicaid (10/24/2016 00:17:Sirena Avendaño) Car Seat for Discharge: Yes (10/24/2016 00:17:Sirena Avendaño) LABS Blood Type: O Positive (10/24/2016 00:17:Amanda Ramye RN) Antibody Screen: negative (10/24/2016 00:17:Amanda Ramey RN) Group Beta Strep: negative (10/24/2016 00:17:Amanda Ramey RN) Gonorrhea: Negative (10/24/2016 00:17:Amanda Ramey RN) Chlamydia: Negative (10/24/2016 00:17:Amanda Ramey RN) RPR/VDRL: Nonreactive (10/24/2016 00:17:Amanda Ramey RN) HIV Exposure Test: Negative (10/24/2016 00:17:Amanda Ramey RN) Hepatitis B: Negative (10/24/2016 00:17:Amanda Ramey RN) Rubella: Immune (10/24/2016 00:17:Amanda Ramey RN) OB/PREVIOUS HISTORY Previous Procedures: Ultrasound; NST (10/24/2016 00:17:Sirena Avendaño) Current Procedures: Ultrasound; NST (10/24/2016 00:17:Sirena Avendaño) History of Previous : No (10/24/2016 00:17:Sirena Avendaño) History of Gestational Diabetes: Yes (10/24/2016 00:17:Sirena Avendaño) History of PIH: No (10/24/2016 00:17:Sirena Avendaño) History of Incompetent Cervix: No (10/24/2016 00:17:Sirena Avendaño) History of Placenta Previa/Abrup: Yes (10/24/2016 00:17:Sirena Avendaño) History of Macrosomia: No (10/24/2016 00:17:Sirena Avendaño) History of IUGR: No (10/24/2016 00:17:Sirena Avendaño) History of Hemorrhage: No (10/24/2016 00:17:Sirena Avendaño) History of Loss/Stillborn: No (10/24/2016 00:17:Sirena Avendaño) History of : No (10/24/2016 00:17:Sirena Avendaño) History of D (Rh) Sensitization: No (10/24/2016 00:17:Sirena Avendaño) History Recurrent Loss/Stillborn: No (10/24/2016 00:17:Sirena Avendaño) History Depression/PP Depression: Yes (10/24/2016 00:17:Sirena Avendaño) History of Uterine Anomaly/JT: No (10/24/2016 00:17:Sirena Avendaño) History of Infertility: No (10/24/2016 00:17:Sirena Avendaño) History of ART Treatment: No (10/24/2016 00:17:Sirena Avendaño) History of JT: No (10/24/2016 00:17:Sirena Avendaño) Comments Obstetrical History: G1: 2004 or 2004 3 month demise G2: 39 wks 2005 G3: VD 39 wks 2009 G4: Current, GDM, previa, placenta moved to 2.6 cm away from cx as of 09/22, GDM (10/24/2016 00:17:Amanda Ramey RN) MEDICAL HISTORY Med Hx Diabetes: Yes (10/24/2016 00:17:Sirena Avendaño) Diabetes Type: Gestational Diabetes (10/24/2016 00:17:Sirena Avendaño) Med Hx Hypertension: No (10/24/2016 00:17:Sirena Avendaño) Med Hx Heart Disease: No (10/24/2016 00:17:Sirena Avendaño) Med Hx Autoimmune Disorder: No (10/24/2016 00:17:Sirena Avendaño) Med Hx Kidney Disease/UTI: No (10/24/2016 00:17:Sirena Avendaño) Med Hx Neurologic/Epilepsy: No (10/24/2016 00:17:Sirena Avendaño) Med Hx Psychiatric Disorders: No (10/24/2016 00:17:Sirena Avendaño) Med Hx Hepatitis/Liver Disease: No (10/24/2016 00:17:Sirena Avendaño) Med Hx Varicosities/Phlebitis: No (10/24/2016 00:17:Sirena Avendaño) Med Hx Thyroid Dysfunction: No (10/24/2016 00:17:Sirena Avendaño) Med Hx Trauma/Violence: No (10/24/2016 00:17:Sirena Avendaño) Med Hx Blood Transfusion: No (10/24/2016 00:17:Sirena Avendaño) Med Hx Pulmonary (Asthma,TB): No (10/24/2016 00:17:Sirena Avendaño) Med Hx Breast: No (10/24/2016 00:17:Sirena Avendaño) Med Hx LAND LEASING INFORMATION CLERK Surgery: No (10/24/2016 00:17:Sirena Avendaño) Med Hx Hospitalization/Surgery: No (10/24/2016 00:17:Sirena Avendaño) Med Hx Anesthetic Complications: No (10/24/2016 00:17:Sirena Avendaño) Med Hx Abnormal Pap Smear: Yes (10/24/2016 00:17:Amanda Ramey RN) Med Hx Abnormal Pap Smear: No (10/24/2016 00:17:Sirena Avendaño) Other Medical Diseases: No (10/24/2016 00:17:Sirena Avendaño) Med Hx Significant Family Hx: No (10/24/2016 00:17:Sirena Avendaño) Details of Med/Surg Hx: LEEP 2014 (10/24/2016 00:17:Amanda Ramey RN) Details of Med/Surg Hx: herpes genital warts (10/24/2016 00:17:Sirena Avendaño) INFECTIOUS HISTORY Inf Hx Gonorrhea: No (10/24/2016 00:17:Sirena Avendaño) Inf Hx Chlamydia: No (10/24/2016 00:17:Sirena Avendaño) Inf Hx Syphilis: No (10/24/2016 00:17:Sirena Avendaño) Inf Hx HIV/AIDS: No (10/24/2016 00:17:Sirena Avendaño) Inf Hx Human Papilloma Virus: No (10/24/2016 00:17:Sirena Avendaño) Inf Hx Pt/Partner Genital Herpes: Yes (10/24/2016 00:17:Amanda Ramey RN) Inf Hx Tuberculosis/Exposure: No (10/24/2016 00:17:Sirena Avendaño) Inf Hx Hepatitis B,C: No (10/24/2016 00:17:Sirena Avendaño) Inf Hx Rash or Viral Illness: No (10/24/2016 00:17:Sirena Avendaño) Details of Infectious Hx: Hx HSV, genital warts and condyloma covering labia/rectum/perineum (10/24/2016 00:17:Amanda Ramey RN) GENETIC HISTORY Gen Hx Age >=35 at AMY: No (10/24/2016 00:17:Sirena Avendaño) Gen Hx Thalassemia: No (10/24/2016 00:17:Sirena Avendaño) Gen Hx Congenital Heart Defect: No (10/24/2016 00:17:Sirena Avendaño) Gen Hx Neural Tube Defect: No (10/24/2016 00:17:Sirena Avendaño) Gen Hx Down's Syndrome: No (10/24/2016 00:17:Sirena Avendaño) Gen Hx Luis Alfredo-Sachs: No (10/24/2016 00:17:Sirena Avendaño) Gen Hx Kwasi: No (10/24/2016 00:17:Sirena Avendaño) Gen Hx Familial Dysautonomia: No (10/24/2016 00:17:iSrena Avendaño) Gen Hx Sickle Cell Disease/Trait: No (10/24/2016 00:17:Sirena Avendaño) Gen Hx Hemophilia/Blood Disorder: No (10/24/2016 00:17:Sirena Avendaño) Gen Hx Muscular Dystrophy: No (10/24/2016 00:17:Sirena Avendaño) Gen Hx Cystic Fibrosis: No (10/24/2016 00:17:Sirena Avendaño) Gen Hx [place] Chorea: No (10/24/2016 00:17:Sirena Avendaño) Gen Hx Mental Retardation/Autism: No (10/24/2016 00:17:Sirena Avendaño) Gen Hx Tested for Fragile X: No (10/24/2016 00:17:Sirena Avendaño) Gen Hx Other Inher/Chromosomal: No (10/24/2016 00:17:Sirena Avendaño) Gen Hx Maternal Metabolic DO: No (10/24/2016 00:17:Sirena Avendaño) Gen Hx Pt Father or FOB Defect: No (10/24/2016 00:17:Sirena Avendaño) Gen Hx Other Genetic History: No (10/24/2016 00:17:Sirena Avendaño) Gen Hx Drugs/Meds since LMP: No (10/24/2016 00:17:Sirena Avendaño)
--- NOTE | 2016-10-25 10:46 | L&D Admission Assessment ---
LD ADM ASMT Datetime Report Generated by CPN: 10/25/2016 10:45 PATIENT ASSESSMENT Assessment Type: Triage (10/24/2016 00:35:Sirena Avendaño) WEIGHT Weight (lb): 216 (10/25/2016 09:55:QS system process) Weight (lb): 222 (10/24/2016 00:23:QS system process) Weight (kg): 98.2 (10/25/2016 09:55:QS system process) Weight (kg): 100.9 (10/24/2016 00:23:QS system process) BMI: 33.8 (10/25/2016 09:55:QS system process) PAIN Pain Scale: 2 (10/25/2016 09:52:Josiane Hilario RN) Pain Scale: 1 (10/24/2016 00:35:Sirena Avendaño) Pain Presence: Intermittent (10/25/2016 09:52:Josiane Hilario RN) Pain Presence: Intermittent (10/24/2016 00:35:Sirena Avendaño) Pain Type: Contraction (10/25/2016 09:52:Josiane Hilario RN) Pain Type: Cramping (10/24/2016 00:35:Sirena Avendaño) Pain Location: Back (10/25/2016 09:52:Josiane Hilario RN) Pain Location: Abdomen; Back (10/24/2016 00:35:Sirena Avendaño) Pain Goal: 0 (10/24/2016 00:35:Sirena Avendaño) Pain Related to Contraction: Yes (10/24/2016 00:35:Sirena Avendaño) CONTRACTIONS Frequency (min): 4.5-5.5 (10/24/2016 01:57:Katherine Dionisio, RN) Frequency (min): iregg (10/24/2016 01:30:Katherine Dionisio, RN) Frequency (min): 1.5-8 (10/24/2016 01:00:Katherine Dionisio, RN) Duration (sec): 50-90 (10/24/2016 01:57:Katherine Dionisio, RN) Duration (sec): 40-80 (10/24/2016 01:30:Katherine Dionisio, RN) Duration (sec): 40-70 (10/24/2016 01:00:Katherine Dionisio, RN) Quality: Mild (10/24/2016 01:57:Katherine Dionisio, RN) Quality: Mild (10/24/2016 01:30:Katherine Dionisio, RN) Quality: Mild (10/24/2016 01:23:Amanda Ramey RN) Quality: Mild (10/24/2016 01:00:Katherine Dionisio, RN) Pattern: Normal: <= 5 Contractions in 10 Minutes (10/24/2016 01:57:Katherine Dionisio, RN) Pattern: Normal: <= 5 Contractions in 10 Minutes (10/24/2016 01:30:Katherine Dionisio, RN) Pattern: Normal: <= 5 Contractions in 10 Minutes (10/24/2016 01:00:Katherine Dionisio, RN) Resting Tone [place]: Relaxed (10/24/2016 01:57:Katherine Dionisio, RN) Resting Tone [place]: Relaxed (10/24/2016 01:30:Katherine Dionisio, RN) Resting Tone [place]: Relaxed (10/24/2016 01:00:Katherine Dionisio, RN) Contraction Comments: pt. states she is having a ctn here (10/24/2016 01:11:Katherine Dionisio, RN) VAGINAL EXAM Dilatation (cm): 1.0 (10/24/2016 01:51:Katherine Nichole RN) Dilatation (cm): 1.0 (10/24/2016 00:50:Sirena Avendaño) Effacement (%): 50 (10/24/2016 01:51:Katherine Nichole RN) Effacement (%): 50 (10/24/2016 00:50:Sirena Avendaño) Station: -3 (10/24/2016 01:51:Katherine Nichole RN) Station: -3 (10/24/2016 00:50:Sirena Avendaño) NEURO Level of Consciousness: Fully Conscious (10/24/2016 00:35:Sirena Avendaño) DTR's/Clonus: DTRs 2+; No Clonus (10/24/2016 00:35:Sirena Avendaño) Headache: Denies (10/24/2016 00:35:Sirena Avendaño) Dizziness: No (10/24/2016 00:35:Sirena Avendaño) Blurred Vision: No (10/24/2016 00:35:Sirena Avendaño) Extremity Numbness/Tingling : None (10/24/2016 00:35:Sirena Avendaño) Extremity Movement: Full Range of Motion (10/24/2016 00:35:Sirena Avendaño) CARDIOVASCULAR Heart Rhythm: Regular (10/24/2016 00:35:Sirena Avendaño) Nailbeds: [place] (10/24/2016 00:35:Sirena Avendaño) Capillary Refill: Less than 3 Seconds (10/24/2016 00:35:Sirena Avendaño) Lower Extremities Edema: Bilateral Lower Extremities (10/24/2016 00:35:Sirena Avendaño) Lower Extremities Edema Degree: 1+ (10/24/2016 00:35:Sirena Avendaño) Upper Extremities Edema: Bilateral Upper Extremities (10/24/2016 00:35:Sirena Avendaño) Upper Extremities Edema Degree: 1+ (10/24/2016 00:35:Sirena Avendaño) Facial Edema: None (10/24/2016 00:35:Sirena Avendaño) DVT RISK ASSESSMENT DVT Risk Age: Age less than 41 years (10/24/2016 00:35:Sirena Avendaño) DVT Risk BMI: BMI<31 (10/24/2016 00:35:Sirena Avendaño) DVT Risk Surgery: None Applicable (10/24/2016 00:35:Sirena Avendaño) DVT Risk Other: Women Only- or (<1 month) (10/24/2016 00:35:Sirena Avendaño) DVT Risk Total: 1 (10/24/2016 00:35:QS system process) DVT Risk Text: Low Risk (<10%) No specific measures, early ambulation (10/24/2016 00:35:QS system process) RESPIRATORY Respiratory Effort: Unlabored (10/24/2016 00:35:Sirena Avendaño) Breath Sounds, Left: Clear and Equal (10/24/2016 00:35:Sirena Avendaño) Breath Sounds, Right: Clear and Equal (10/24/2016 00:35:Sirena Avendaño) Cough Productivity: None (10/24/2016 00:35:Sirena Avendaño) GASTROINTESTINAL Nausea/Vomiting: Denies (10/24/2016 00:35:Sirena Avendaño) Bowel Sounds: Normoactive (10/24/2016 00:35:Sirena Avendaño) RUQ Epigastric Pain: Denies (10/24/2016 00:35:Sirena Avendaño) Response to Antacids: Pain Relieved (10/24/2016 00:35:Sirena Avendaño) Bowel Patterns: Soft, Formed Stool (10/24/2016 00:35:Sirena Avendaño) Hemorrhoids: None (10/24/2016 00:35:Sirena Avendaño) Diet Type: Regular diet (10/24/2016 00:35:Sirena Avendaño) Last Meal: 10/23/2016 21:00 (10/24/2016 00:35:Sirena Avendaño) GENITOURINARY Bladder: Nondistended (10/24/2016 00:35:Sirena Avendaño) Catheter: [place] to Bedside Bag (10/24/2016 00:35:Sirena Avendaño) Frequency of Urination: No (10/24/2016 00:35:Sirena Avendaño) Urination Burning: No (10/24/2016 00:35:Sirena Avendaño) CVA Tenderness: No (10/24/2016 00:35:Sirena Avendaño) Vaginal Bleeding: None (10/24/2016 00:35:Sirena Avendaño) Vaginal Discharge Amount: None (10/24/2016 00:35:Sirena Avendaño) INTEGUMENTARY Skin Color: Normal for Race (10/24/2016 00:35:Sirena Avendaño) Skin Temperature: Warm (10/24/2016 00:35:Sirena Avendaño) Skin Moisture: Dry (10/24/2016 00:35:Sirena Avendaño) Surgical Scars: none (10/24/2016 00:35:Sirena Avendaño) Body Piercings/Tattoos: tatoos x7 ears nose tongue pierced (10/24/2016 00:35:Sirena Avendaño) BERENICE SKIN ASSESSMENT Berenice Scale Sensory Perception: No Impairment- Responds to verbal commands. Has no sensory deficit which would limit ability to feel or voice pain or discomfort (10/24/2016 00:35:Sirena Avendaño) Berenice Scale Moisture: Rarely Moist- Skin is usually dry. Linen only requires changing at routine intervals (10/24/2016 00:35:Sirena Avendaño) Berenice Scale Activity: Walks Frequently- Walks outside the room at least twice a day and inside room at least every 2 hours during the day. (10/24/2016 00:35:Sirena Avendaño) Berenice Scale Mobility: No Limitations- Makes major and frequent changes in position without assistance (10/24/2016 00:35:Sirena Avendaño) Berenice Scale Nutrition: Excellent- Eats most of every meal. Never refuses a meal. Usually eats a total of 4 or more servings of meat and dairy products. Occasionally eats between meals. Does not require supplementation (10/24/2016 00:35:Sirena Avendaño) Berenice Scale Friction and Shear: No Apparent Problem- Moves in bed and in chair independently and has sufficient muscle strength to lift up completely during move. Maintains good position in bed or chair at all times (10/24/2016 00:35:Sirena Avendaño) Berenice Scale Total: 23 (10/24/2016 00:35: system process) Berenice Scale Risk: No Risk of Pressure Ulcer Noted at this Time (10/24/2016 00:35:QS system process) SUPPORT Family Support: Significant Other supportive, at bedside frequently (10/24/2016 00:35:Sirena Avendaño) Emotional State: Calm/Relaxed (10/24/2016 00:35:Sirena Avendaño) SAFETY Call [place] Within Reach: Yes (10/24/2016 00:35:Sirena Avendaño) Side Rails Up: Yes (10/24/2016 00:35:Sirena Avendaño) Bed Wheels Locked: Yes (10/24/2016 00:35:Sirena Avendaño) Arm Bands Present: Yes (10/24/2016 00:35:Sirena Avendaño) Isolation: [place] (10/24/2016 00:35:Sirena Avendaño) FALL SCREEN Fall Risk History of Falling: (0) No (10/24/2016 00:35:Sirena Avendaño) Fall Risk Secondary Diagnosis: (0) No (10/24/2016 00:35:Sirena Avendaño) Fall Risk Ambulatory Aid: (0) None/Bedrest/Wheelchair/Nurse Assist (10/24/2016 00:35:Sirena Avendaño) Fall Risk IV Therapy: (0) No (10/24/2016 00:35:Sirena Avendaño) Fall Risk Gait: (0) Normal/Bedrest/Immobile (10/24/2016 00:35:Sirena Avendaño) Fall Risk Mental Status: (0) Oriented to Own Ability (10/24/2016 00:35:Sirena Avendaño) Fall Risk Score: 0 (10/24/2016 00:35:QS system process) Fall Risk Score Definition: No Risk: No action required (10/24/2016 00:35:QS system process) RECENT TRAVEL/INFECTIOUS DISEASE Recent Exp Communicable Disease: No (10/24/2016 00:35:Sirena Avendaño) Cough or Fever: No (10/24/2016 00:35:Sirena Avendaño) Foreign Travel Past 10 Days: No (10/24/2016 00:35:Sirena Avendaño) Open Wounds or Sores: No (10/24/2016 00:35:Sirena Avendaño) Prior Antibiotic Resistance Tx: No (10/24/2016 00:35:Sirena Avendaño) BABY A FHR Baseline Rate (bpm) Baby A: 120 (10/24/2016 01:57:Katherine Nichole RN) FHR Baseline Rate (bpm) Baby A: 120 (10/24/2016 01:30:Katherine Nichole RN) FHR Baseline Rate (bpm) Baby A: 120 (10/24/2016 01:00:Katherine Nichole RN) Variability Baby A: Moderate 6-25 bpm (10/24/2016 01:57:Katherine Nichole RN) Variability Baby A: Moderate 6-25 bpm (10/24/2016 01:30:Katherinemariama Nichole RN) Variability Baby A: Moderate 6-25 bpm (10/24/2016 01:00:Katherine Nichole RN) Accelerations Baby A: 15X15 (10/24/2016 01:57:Katherine Nichole RN) Accelerations Baby A: 15X15 (10/24/2016 01:30:Katherine Nichole RN) Accelerations Baby A: None (10/24/2016 01:00:Katherine Nichole RN) Decelerations Baby A: None (10/24/2016 01:57:Katherine Nichole RN) Decelerations Baby A: None (10/24/2016 01:00:Katherinemariama Nichole RN)
== END 2016-10-25 10:16 | disposition home or self-care (01) ==
LOC: LC 09:34
PROVIDERS: ATTEND Obstetrics & Gynecology
PROC: 4A1HXCZ Monitoring of Products of Conception, Cardiac Rate, External Approach (ICD-10-PCS; principal; 2016-10-25)
DX: O47.1 False labor at or after 37 completed weeks of gestation (principal); Z3A.37 37 weeks gestation of pregnancy
CPT/HCPCS: 59025

== ENCOUNTER 2016-10-29 23:47 | Outpatient (CLI) | payer OTHER, MEDICAID ==
[2016-10-30 00:21] LABS: APPEARANCE,URINE SLIGHTLY-CLOUDY; BILIRUBIN,URINE NEGATIVE (NEGATIVE); GLUCOSE, URINE NEGATIVE (NEGATIVE); KETONES,URINE TRACE mg/dL (NEGATIVE); LEUKOCYTE ESTERASE,URINE TRACE (NEGATIVE); NITRITE,URINE NEGATIVE (NEGATIVE); PROTEIN,URINE NEGATIVE (NEGATIVE); URINE SPECIFIC GRAVITY 1.004; UROBILINOGEN,URINE NEGATIVE mg/dL (<2.0)
[2016-10-30 00:36] LABS: URINE BARBITURATES SCREEN NEGATIVE; URINE METHADONE SCREEN NEGATIVE; URINE OPIATES LOW NEGATIVE; URINE PHENCYCLIDINE SCREEN NEGATIVE
[2016-10-30] MEDS ORDERED: HYDROCODONE/ACETAMINOPHEN 5-325 MG TABLET PO ONE (00:49)
[2016-10-30] MEDS ORDERED: HYDROCODONE/ACETAMINOPHEN 5-325 MG TABLET ONE (00:57)
--- NOTE | 2016-10-30 04:46 | L&D Admission Assessment ---
LD ADM ASMT Datetime Report Generated by CPN: 10/30/2016 04:45 Assessment Type: Triage (10/30/2016 00:10:Gisela Gambino RN) Weight (lb): 220 (10/30/2016 00:29:QS system process) Weight (kg): 100.0 (10/30/2016 00:29:QS system process) BMI: 34.5 (10/30/2016 00:29:QS system process) Pain Scale: 3 (10/30/2016 00:10:Gisela Gambino RN) Pain Presence: Constant (10/30/2016 00:10:Gisela Gambino RN) Pain Type: Sharp; Pressure (10/30/2016 00:10:Gisela Gambino RN) Pain Location: Back; Perineum (10/30/2016 00:10:Gisela Gambino RN) Pain Goal: 0 (10/30/2016 00:10:Gisela Gambino RN) Pain Related to Contraction: Yes (10/30/2016 00:10:Gisela Gambino RN) Frequency (min): x4 (10/30/2016 00:59:Gisela Gambino RN) Frequency (min): x2 (10/30/2016 00:30:Gisela Gambino RN) Frequency (min): q4-5 min (10/30/2016 00:10:Gisela Gambino RN) Duration (sec): 100-220 (10/30/2016 00:59:Gisela Gambino RN) Duration (sec): 70-170 (10/30/2016 00:30:Gisela Gambino RN) Quality: Mild/Moderate (10/30/2016 00:59:Gisela Gambino RN) Quality: Mild/Moderate (10/30/2016 00:30:Gisela Gambino RN) Resting Tone Simpson: Relaxed (10/30/2016 00:59:Gisela Gambino RN) Resting Tone Simpson: Relaxed (10/30/2016 00:30:Gisela Gambino RN) Dilatation (cm): 1.0 (10/30/2016 00:17:Gisela Gambino RN) Effacement (%): 50 (10/30/2016 00:17:Gisela Gambino RN) Station: -3 (10/30/2016 00:17:Gisela Gambino RN) Level of Consciousness: Fully Conscious (10/30/2016 00:10:Gisela Gambino RN) DTR's/Clonus: DTRs 1+; No Clonus (10/30/2016 00:10:Gisela Gambino RN) Headache: Denies (10/30/2016 00:10:Gisela Gambino RN) Dizziness: No (10/30/2016 00:10:Gisela Gambino RN) Blurred Vision: No (10/30/2016 00:10:Gislea Gambino RN) Extremity Numbness/Tingling : None (10/30/2016 00:10:Gisela Gambino RN) Extremity Movement: Full Range of Motion (10/30/2016 00:10:Gisela Gambino RN) Heart Rhythm: Regular (10/30/2016 00:10:Gisela Gambino RN) Nailbeds: [place] (10/30/2016 00:10:Gisela Gambino RN) Capillary Refill: Less than 3 Seconds (10/30/2016 00:10:Gisela Gambino RN) Lower Extremities Edema: Bilateral Lower Extremities (10/30/2016 00:10:Gisela Gambino RN) Lower Extremities Edema Degree: Pitting (10/30/2016 00:10:Gisela Gambino RN) Upper Extremities Edema: None (10/30/2016 00:10:Gisela Gambino RN) Upper Extremities Edema Degree: None (10/30/2016 00:10:Gisela Gambino RN) Facial Edema: None (10/30/2016 00:10:Gisela Gambino RN) Goyo's Sign Left Leg: Negative (10/30/2016 00:10:Gisela Gambino RN) Goyo's Sign Right Leg: Negative (10/30/2016 00:10:Gisela Gambino RN) DVT Risk Age: Age less than 41 years (10/30/2016 00:10:Gisela Gambino RN) DVT Risk BMI: BMI 31 to 40 (10/30/2016 00:10:Gisela Gambino RN) DVT Risk Surgery: None Applicable (10/30/2016 00:10:Gisela Gambino RN) DVT Risk Other: Varicose Veins; Women Only- or (<1 month) (10/30/2016 00:10:Gisela Gambino RN) DVT Risk Total: 3 (10/30/2016 00:10:QS system process) DVT Risk Text: High Risk (20-40%)- Consider stockings, compresssion device, pharmacological therapy per hospital policy (10/30/2016 00:10:QS system process) Respiratory Effort: Unlabored; Regular Rhythm; Equal Expansion (10/30/2016 00:10:Gisela Gambino RN) Breath Sounds, Left: Clear and Equal (10/30/2016 00:10:Gisela Gambino RN) Breath Sounds, Right: Clear and Equal (10/30/2016 00:10:Gisela Gambino RN) Cough Productivity: Productive (10/30/2016 00:10:Gisela Gambino RN) Nausea/Vomiting: Present (10/30/2016 00:10:Gisela Gambino RN) Bowel Sounds: Normoactive (10/30/2016 00:10:Gisela Gambino RN) RUQ Epigastric Pain: Denies (10/30/2016 00:10:Gisela Gambino RN) Bowel Patterns: Diarrhea (10/30/2016 00:10:Gisela Gambino RN) Hemorrhoids: Present (10/30/2016 00:10:Gisela Gambino RN) Diet Type: Regular diet (10/30/2016 00:10:Gisela Gambino RN) Last Meal: 10/29/2016 22:00 (10/30/2016 00:10:Gisela Gambino RN) Bladder: Nondistended (10/30/2016 00:10:Gisela Gambino RN) Frequency of Urination: No (10/30/2016 00:10:Gisela Gambino RN) Urination Burning: No (10/30/2016 00:10:Gisela Gambino RN) CVA Tenderness: No (10/30/2016 00:10:Gisela Gambino RN) Skin Color: Normal for Race (10/30/2016 00:10:Gisela Gambino RN) Skin Temperature: Warm (10/30/2016 00:10:Gisela Gambino RN) Skin Moisture: Dry (10/30/2016 00:10:Gisela Gambino RN) Jose J Scale Sensory Perception: No Impairment- Responds to verbal commands. Has no sensory deficit which would limit ability to feel or voice pain or discomfort (10/30/2016 00:10:Gisela Gambino RN) Jose J Scale Moisture: Rarely Moist- Skin is usually dry. Linen only requires changing at routine intervals (10/30/2016 00:10:Gisela Gambino RN) Jose J Scale Activity: Walks Frequently- Walks outside the room at least twice a day and inside room at least every 2 hours during the day. (10/30/2016 00:10:Gisela Gambino RN) Jose J Scale Mobility: No Limitations- Makes major and frequent changes in position without assistance (10/30/2016 00:10:Gisela Gambino RN) Jose J Scale Nutrition: Excellent- Eats most of every meal. Never refuses a meal. Usually eats a total of 4 or more servings of meat and dairy products. Occasionally eats between meals. Does not require supplementation (10/30/2016 00:10:Gisela Gambino RN) Jose J Scale Friction and Shear: No Apparent Problem- Moves in bed and in chair independently and has sufficient muscle strength to lift up completely during move. Maintains good position in bed or chair at all times (10/30/2016 00:10:Gisela Gambino RN) Jose J Scale Total: 23 (10/30/2016 00:10:QS system process) Jose J Scale Risk: No Risk of Pressure Ulcer Noted at this Time (10/30/2016 00:10:QS system process) Family Support: Family supportive (10/30/2016 00:10:Gisela Gambino RN) Emotional State: Calm/Relaxed (10/30/2016 00:10:Gisela Gambino RN) Call [place] Within Reach: Yes (10/30/2016 00:10:Gisela Gambino RN) Side Rails Up: Yes (10/30/2016 00:10:Gisela Gambino RN) Bed Wheels Locked: Yes (10/30/2016 00:10:Gisela Gambino RN) Arm Bands Present: Yes (10/30/2016 00:10:Gisela Gambino RN) Isolation: [place] (10/30/2016 00:10:Gisela Gambino RN) Fall Risk History of Falling: (0) No (10/30/2016 00:10:Gisela Gambino RN) Fall Risk Secondary Diagnosis: (0) No (10/30/2016 00:10:Gisela Gambino RN) Fall Risk Ambulatory Aid: (0) None/Bedrest/Wheelchair/Nurse Assist (10/30/2016 00:10:Gisela Gambino RN) Fall Risk IV Therapy: (0) No (10/30/2016 00:10:Gisela Gambino RN) Fall Risk Gait: (0) Normal/Bedrest/Immobile (10/30/2016 00:10:Gisela Gambino RN) Fall Risk Mental Status: (0) Oriented to Own Ability (10/30/2016 00:10:Gisela Gambino RN) Fall Risk Score: 0 (10/30/2016 00:10:QS system process) Fall Risk Score Definition: No Risk: No action required (10/30/2016 00:10:QS system process) Recent Exp Communicable Disease: No (10/30/2016 00:10:Gisela Gambino RN) Cough or Fever: No (10/30/2016 00:10:Gisela Gambino RN) Foreign Travel Past 10 Days: No (10/30/2016 00:10:Gisela Gambino RN) Open Wounds or Sores: No (10/30/2016 00:10:Gisela Gambino RN) Prior Antibiotic Resistance Tx: No (10/30/2016 00:10:Gisela Gambino RN) Cultures Obtained: Not Applicable (10/30/2016 00:10:Gisela Gambino RN) Isolation Initiated: No (10/30/2016 00:10:Gisela Gambino RN) Pt/Family Education: Handwashing Hygiene (10/30/2016 00:10:Gisela Gambino RN) FHR Baseline Rate (bpm) Baby A: 120 (10/30/2016 00:59:Gisela Gambino RN) FHR Baseline Rate (bpm) Baby A: 120 (10/30/2016 00:30:Gisela Gambino RN) Variability Baby A: Moderate 6-25 bpm (10/30/2016 00:59:Gisela Gambino RN) Variability Baby A: Moderate 6-25 bpm (10/30/2016 00:30:Gisela Gambino RN) Accelerations Baby A: 15X15 (10/30/2016 00:59:Gisela Gambino RN) Accelerations Baby A: 15X15 (10/30/2016 00:30:Gisela Gambino RN) Decelerations Baby A: None (10/30/2016 00:59:Gisela Gambino RN) Decelerations Baby A: None (10/30/2016 00:30:Gisela Gambino RN)
--- NOTE | 2016-10-30 04:46 | L&D General Admission ---
General Admit Datetime Report Generated by CPN: 10/30/2016 04:45 Para: 2 (10/30/2016 01:16:Gisela Gambino RN) Para: 2 (10/25/2016 10:33:Josiane Hilario RN) Baby, Number in Womb: 1 (10/30/2016 01:16:Gisela Gambino RN) Baby, Number in Womb: 1 (10/25/2016 10:33:Josiane Hilario RN) Height (in): 67 (10/30/2016 00:29:QS system process) Height (in): 67 (10/25/2016 09:55:QS system process) Medication Allergies: No Known Allergies (10/25/2016) (10/25/2016 09:54:QS system process)
--- NOTE | 2016-10-30 04:46 | L&D Current Admission ---
Current Admit Datetime Report Generated by [facility]: 10/30/2016 04:45 Chief Complaint: Uterine Cramping; Back Pain (10/30/2016 00:10:Gisela Gambino RN)
--- NOTE | 2016-10-30 04:46 | L&D Discharge Summary ---
OB Discharge Summary Datetime Report Generated by CPN: 10/30/2016 04:45 DISCHARGE DIAGNOSIS Diagnosis/Symptoms: False Labor Gestation: 37.6 Number of Babies in Womb: 1 Parity: 2 DIET/ACTIVITY/RESTRICTIONS Diet: Regular Activity: Normal Activity TEACHING/INSTRUCTIONS/REFERRALS Instructions Given To: Patient and friend Instructions Understood: Patient Verbalized Understanding; Support Person Verbalized Understanding Referrals: None Educational Materials- Other: Term DISCHARGE INFORMATION Discharged AMA: No Discharge Date/Time: 10/30/2016 01:10 Discharged To: Home Discharge Provider Name: Dr. Romero Accompanied By: Friend Discharge Method: Wheelchair Condition: Stable FOLLOW UP INFORMATION Follow Up With: [facility] Follow Up On: As Scheduled Follow Up Phone Number: [facility] - Comments: Discussed term and signs and symptoms of when to return to office or hospital with patient and friend. Both, patient and friend, verbalized understanding. Patient discharged home due to false labor via wheelchair in stable condition. GENERAL INSTR-CALL PROVIDER IF: Contractions: Contractions or cramps become more frequent than 8 in one hour or 4 in 20 minutes; Regular painful contractions every 5 minutes or less for one hour. Time your contractions from the beginning of one to the beginning of the next Pressure: Pressure in your vagina or lower abdomen that may feel like the baby is pushing down Period Like Cramps: Period-like cramps or low dull backache that may come and go Cramps/Diarrhea: Abdominal cramps that may be accompanied by diarrhea Gush of Fluid/Blood: Gush of fluid or blood from your vagina (it is normal to have spotting after vaginal exam or intercourse) Vaginal Discharge: Change in the type or amount of vaginal discharge Decreased Movement: Your baby is not moving as much as usual- 4 movements in 1 hour after drinking and resting on side Temperature: Temperature greater than 100.0(F) orally
--- NOTE | 2016-10-30 04:46 | Antepartum Discharge Summary ---
Antepartum DC Datetime Report Generated by CPN: 10/30/2016 04:45 Diet: Regular (10/30/2016 01:16:Gisela Gambino RN) Activity: Normal Activity (10/30/2016 01:16:Gisela Gambino RN) Instructions Given To: Patient and friend (10/30/2016 01:16:Gisela Gambino RN) Instructions Understood: Patient Verbalized Understanding; Support Person Verbalized Understanding (10/30/2016 01:16:Gisela Gambino RN) Referrals: None (10/30/2016 01:16:Gisela Gambino RN) Educational Materials- Other: Term (10/30/2016 01:16:Gisela Gambino RN) Discharged AMA: No (10/30/2016 01:16:Gisela Gambino RN) Discharge Date/Time: 10/30/2016 01:10 (10/30/2016 01:16:Gisela Gambino RN) Discharged To: Home (10/30/2016 01:16:Gisela Gambino RN) Discharge Provider Name: Dr. Romero (10/30/2016 01:16:Gisela Gambino RN) Accompanied By: Friend (10/30/2016 01:16:Gisela Gambino RN) Discharge Method: Wheelchair (10/30/2016 01:16:Gisela Gambino RN) Condition: Stable (10/30/2016 01:16:Gisela Gambino RN) Follow Up With: [facility] (10/30/2016 01:16:Gisela Gambino RN) Follow Up On: As Scheduled (10/30/2016 01:16:Gisela Gambino RN) Follow Up Phone Number: [facility] - (10/30/2016 01:16:Gisela Gambino RN) Comments: Discussed term and signs and symptoms of when to return to office or hospital with patient and friend. Both, patient and friend, verbalized understanding. Patient discharged home due to false labor via wheelchair in stable condition. (10/30/2016 01:16:Gisela Gambino RN) Contractions: Contractions or cramps become more frequent than 8 in one hour or 4 in 20 minutes; Regular painful contractions every 5 minutes or less for one hour. Time your contractions from the beginning of one to the beginning of the next (10/30/2016 01:16:Gisela Gambino RN) Pressure: Pressure in your vagina or lower abdomen that may feel like the baby is pushing down (10/30/2016 01:16:Gisela Gambino RN) Period Like Cramps: Period-like cramps or low dull backache that may come and go (10/30/2016 01:16:Gisela Gambino RN) Cramps/Diarrhea: Abdominal cramps that may be accompanied by diarrhea (10/30/2016 01:16:Gisela Gambino RN) Gush of Fluid/Blood: Gush of fluid or blood from your vagina (it is normal to have spotting after vaginal exam or intercourse) (10/30/2016 01:16:Gisela Gambino RN) Vaginal Discharge: Change in the type or amount of vaginal discharge (10/30/2016 01:16:Gisela Gambino RN) Decreased Movement: Your baby is not moving as much as usual- 4 movements in 1 hour after drinking and resting on side (10/30/2016 01:16:Gisela Gambino RN) Temperature: Temperature greater than 100.0(F) orally (10/30/2016 01:16:Gisela Gambino RN) Hypertension Signs/Symptoms: Severe headache which is not relieved 30 minutes after taking Tylenol(Acetaminophen); Blurry vision or spots before your eyes; Severe heartburn or pain on the upper right side of your abdomen that is not relieved by an antacid; Increased swelling in your face, hands or feet (10/30/2016 01:16:Gisela Gambino RN) Urinary Output: Decreased urinary output or dark colored urine (10/30/2016 01:16:Gisela Gambino RN)
--- NOTE | 2016-10-30 04:46 | L&D Flow Sheet ---
LD Flowsheet Datetime Report Generated by CPN: 10/30/2016 04:45 Datetime: 10/30/2016 00:59 Monitor Mode: External; Palpation (Gisela Gambino RN) Frequency (min): x4 (Gisela Gambino, RN) Quality: Mild/Moderate (Gisela Gambino, RN) Duration (sec): 100-220 (Gisela Gambino RN) Resting Tone (Palpate): Relaxed (Gisela Gambino RN) Monitor Mode: External US (Gisela Gambino, RN) FHR Baseline Rate : 120 (Gisela Gambino, RN) Variability: Moderate 6-25 bpm (Gisela Gambino, RN) Accelerations: 15X15 (Gisela Gambino, RN) Decelerations: None (Gisela Gambino RN) Patient Care Comments: Discussed Term with patient and friend; both verbalized understanding; discussed difference between gerson hart and regular contractions (Gisela Gambino, RN) Datetime: 10/30/2016 00:49 Communication Comments: Orders received to Discharge home (Gisela Field, RN) Datetime: 10/30/2016 00:46 Communication: RN at Bedside; RN Reviewed Strip; Provider at Bedside; Provider Orders Received (Gisela Field, RN) Communication Comments: Orders received for [place] (Gisela Field, RN) Datetime: 10/30/2016 00:45 Communication Comments: Dr. Romero at [place] (Gisela Field, RN) Datetime: 10/30/2016 00:39 NBP Sys/Dulce/Mean (mmHg): 118 (QS system process) : 61 (QS system process) : 83 (QS system process) Pulse: 90 (QS system process) Datetime: 10/30/2016 00:30 Monitor Mode: External; Palpation (Gisela Field, RN) Frequency (min): x2 (Gisela Field, RN) Quality: Mild/Moderate (Gisela Field, RN) Duration (sec): 70-170 (Gisela Field, RN) Resting Tone (Palpate): Relaxed (Gisela Field, RN) Monitor Mode: External US (Gisela Field, RN) FHR Baseline Rate : 120 (Gisela Field, RN) Variability: Moderate 6-25 bpm (Gisela Field, RN) Accelerations: 15X15 (Gisela Field, RN) Decelerations: None (Gisela Field, RN) Datetime: 10/30/2016 00:17 Dilatation (cm): 1.0 (Gisela Gambino RN) Effacement (%): 50 (Gisela Gambino RN) Station: -3 (Gisela Gambino RN) Exam by: ELEANOR [place] (Gisela Gambino RN) Cervix, Position: Posterior (Gisela Gambino, RN) Datetime: 10/30/2016 00:10 Frequency (min): q4-5 min (Gisela Gambino RN) Pain Scale: 3 (Gisela Gambino RN) Pain Presence: Constant (Gisela Gambino RN) Pain Type: Sharp; Pressure (Gisela Gambino RN) Pain Location: Back; Perineum (Gisela Gambino RN) Pain Goal: 0 (Gisela Gambino RN) Pain Relief Measures: Comfort Measures (Gisela Gambino RN) Pain Coping: Talking Through Contractions; Breathing Through Contractions (Gisela Gambino RN) Vaginal Bleeding: None (Gisela Gambino RN) Level of Consciousness: Fully Conscious (Gisela Gambion RN) DTR's/Clonus: DTRs 1+; No Clonus (Gisela Gambino RN) Headache: Denies (Gisela Gambino RN) Breath Sounds, Left: Clear and Equal (Gisela Gambino RN) Breath Sounds, Right: Clear and Equal (Gisela Gambino RN) Nausea/Vomiting: Present (Gisela Gambino RN) RUQ Epigastric Pain: Denies (Gisela Gambino RN) Instructional Method: Verbal; Patient Instructed; Family/Support Person Instructed; Verbalized Understanding (Gisela Gambino RN) Plan of Care: Plan of Care Discussed (Gisela Gambino RN) Unit Routine: [place] to Room; Call Jiménez; Bed; Visiting Policy; Waiting Areas; Infant Security; Phone/Cell Phone Use; Unit Personnel; Handwashing; Flu/Illness Precautions; Monitoring; Safety/Fall Risk Prevention; Bathroom Privileges (Gisela Gambino RN) Datetime: 10/30/2016 00:09 NBP Sys/Dulce/Mean (mmHg): 126 (QS system process) : 67 (QS system process) : 92 (QS system process) Pulse: 84 (QS system process)
== END 2016-10-30 01:10 | disposition home or self-care (01) ==
LOC: LC 23:47
PROVIDERS: ATTEND Obstetrics & Gynecology
PROC: 4A1HXCZ Monitoring of Products of Conception, Cardiac Rate, External Approach (ICD-10-PCS; principal; 2016-10-29)
DX: O47.1 False labor at or after 37 completed weeks of gestation (principal); Z3A.37 37 weeks gestation of pregnancy
CPT/HCPCS: 59025; 80307; 81005

== ENCOUNTER 2016-11-03 03:29 | Outpatient (CLI) | payer OTHER, MEDICAID ==
--- NOTE | 2016-11-03 03:37 | Non Stress Test Report ---
Non Stress Test Datetime Report Generated by CPN: 11/03/2016 03:37 DEMOGRAPHIC EGA NST: 38.0 INDICATION Indication for Study: Ordered by Provider Indication for Study (NST) Other: LC URINE RESULTS Urine Protein, NST: Negative Urine Ketones - NST: Positive Urine Glucose - NST: Negative Urine Blood - NST: Negative MONITORING Monitor Explained: Monitor Explained; Test Explained; Patient Verbalized Understanding Time on Monitor: 10/30/2016 00:07 Time off Monitor: 10/30/2016 00:59 NST Duration: 52 NST INTERVENTIONS NST Interventions: PO Hydration; Reposition Patient Physician Notified NST: Dr. Romero BABY A: [id number] BABY A Movement : Present Contraction Frequency : Irregular FHR Baseline : 120 Accelerations : 15X15 Decelerations : None Variability : Moderate 6-25bpm NST Review: Meets Criteria for Reactive NST NST Review and Verified By : Anam Nichole RN NST Results: Reactive NST REPORT Report Trigger: Send Report
[2016-11-03 04:07] LABS: APPEARANCE,URINE CLOUDY; BILIRUBIN,URINE NEGATIVE (NEGATIVE); GLUCOSE, URINE NEGATIVE (NEGATIVE); KETONES,URINE NEGATIVE (NEGATIVE); LEUKOCYTE ESTERASE,URINE LARGE (NEGATIVE); NITRITE,URINE NEGATIVE (NEGATIVE); PROTEIN,URINE NEGATIVE (NEGATIVE); URINE SPECIFIC GRAVITY 1.008; UROBILINOGEN,URINE NEGATIVE mg/dL (<2.0)
[2016-11-03 04:20] LABS: AMNISURE (ROM) NEGATIVE (NEGATIVE)
[2016-11-03 04:21] LABS: URINE BARBITURATES SCREEN NEGATIVE; URINE METHADONE SCREEN NEGATIVE; URINE OPIATES LOW NEGATIVE; URINE PHENCYCLIDINE SCREEN NEGATIVE
[2016-11-03] MEDS ORDERED: HYDROXYZINE PAMOATE 50 MG CAPSULE PO ONE (04:33)
[2016-11-03] MEDS ORDERED: HYDROXYZINE PAMOATE 50 MG CAPSULE ONE (04:55)
--- NOTE | 2016-11-03 05:21 | Non Stress Test Report ---
Non Stress Test Datetime Report Generated by CPN: 11/03/2016 05:21 DEMOGRAPHIC Test Number: 4 EGA NST: 38.4 INDICATION Indication for Study: Other Indication for Study (NST) Other: LC MONITORING Monitor Explained: Monitor Explained; Test Explained; Patient Verbalized Understanding; Other Time on Monitor: 11/03/2016 04:05 Time off Monitor: 11/03/2016 04:51 NST Duration: 46 NST INTERVENTIONS NST Interventions: PO Hydration BABY A Movement : Present Contraction Frequency : irregular FHR Baseline : 150 Accelerations : 15X15 Decelerations : None Variability : Moderate 6-25bpm NST Review: Meets Criteria for Reactive NST NST Review and Verified By : K Karoline RN NST Results: Reactive NST REPORT Report Trigger: Send Report
== END 2016-11-03 05:00 | disposition home or self-care (01) ==
LOC: LC 03:29
PROVIDERS: ATTEND Obstetrics & Gynecology
PROC: 4A1HXCZ Monitoring of Products of Conception, Cardiac Rate, External Approach (ICD-10-PCS; principal; 2016-11-03)
DX: O47.1 False labor at or after 37 completed weeks of gestation (principal); Z3A.38 38 weeks gestation of pregnancy
CPT/HCPCS: 80307; 81005; 84112

== ENCOUNTER 2016-11-14 11:07 | Inpatient (IN) | payer OTHER, MEDICAID ==
[2016-11-14] MEDS ORDERED: RINGERS SOLUTION,LACTATED 1,000 ML IV PRN (11:40)
--- NOTE | 2016-11-14 12:01 | L&D Flow Sheet ---
LD Flowsheet Datetime Report Generated by CPN: 11/14/2016 12:00 Datetime: 11/14/2016 11:28 Vital Signs NBP Sys/Dulce/Mean (mmHg): 135 (QS system process) : 74 (QS system process) : 100 (QS system process) Pulse: 86 (QS system process) Communication LaborFlag: Antepartum (QS system process)
[2016-11-14 12:12] LABS: APPEARANCE,URINE SLIGHTLY-CLOUDY; BILIRUBIN,URINE NEGATIVE (NEGATIVE); GLUCOSE, URINE NEGATIVE (NEGATIVE); KETONES,URINE NEGATIVE (NEGATIVE); LEUKOCYTE ESTERASE,URINE TRACE (NEGATIVE); NITRITE,URINE NEGATIVE (NEGATIVE); PROTEIN,URINE NEGATIVE (NEGATIVE); URINE SPECIFIC GRAVITY 1.014; UROBILINOGEN,URINE NEGATIVE mg/dL (<2.0)
[2016-11-14 12:24] LABS: HEMATOCRIT 36.5 % (36.0-47.0); HEMOGLOBIN 12.5 g/dL (12.0-15.5); MEAN CORPUSCULAR HEMOGLOBIN 31.2 pg (27.0-33.4); MEAN CORPUSCULAR HGB CONC 34.3 g/dL (32.0-36.0); MEAN CORPUSCULAR VOLUME 91 fl (80-97); RED BLOOD COUNT 4.01 10^6/uL (3.72-5.28); RED CELL DISTRIBUTION WIDTH 14.9 % (11.5-14.0); WHITE BLOOD COUNT 11.9 10^3/uL (4.0-10.5)
[2016-11-14 12:28] LABS: URINE BARBITURATES SCREEN NEGATIVE; URINE METHADONE SCREEN NEGATIVE; URINE OPIATES LOW NEGATIVE; URINE PHENCYCLIDINE SCREEN NEGATIVE
--- NOTE | 2016-11-14 14:01 | L&D Flow Sheet ---
LD Flowsheet Datetime Report Generated by CPN: 11/14/2016 14:00 Datetime: 11/14/2016 13:59 NBP Sys/Dulce/Mean (mmHg): 139 (QS system process) : 76 (QS system process) : 101 (QS system process) Pulse: 75 (QS system process) LaborFlag: Antepartum (QS system process) Datetime: 11/14/2016 13:48 Patient Position/Activity: Right Lateral; Low Fowlers (Amalia Dela Cruz, RN) Datetime: 11/14/2016 13:28 NBP Sys/Dulce/Mean (mmHg): 129 (QS system process) : 71 (QS system process) : 95 (QS system process) Pulse: 69 (QS system process) LaborFlag: Antepartum (QS system process) Datetime: 11/14/2016 12:58 NBP Sys/Dulce/Mean (mmHg): 117 (QS system process) : 72 (QS system process) : 89 (QS system process) Pulse: 75 (QS system process) LaborFlag: Antepartum (QS system process) Datetime: 11/14/2016 12:30 Monitor Mode: External; Palpation (Amalia Marlatt, RN) Frequency (min): 4-5.5 (Amalia Marlatt, RN) Quality: Mild/Moderate (Amalia Marlatt, RN) Duration (sec): 80-140 (Amalia Marlatt, RN) Resting Tone (Palpate): Relaxed (Amalia Marlatt, RN) Monitor Mode: External US (Amalia Marlatt, RN) FHR Baseline Rate : 135 (Amalia Marlatt, RN) Variability: Moderate 6-25 bpm (Amalia Marlatt, RN) Accelerations: 15X15 (Amalia Marlatt, RN) Decelerations: Late (Amalia Marlatt, RN) Actions for Decelerations: Side to Side; IV Bolus (Amalia Marlatt, RN) Datetime: 11/14/2016 12:29 NBP Sys/Dulce/Mean (mmHg): 129 (QS system process) : 74 (QS system process) : 96 (QS system process) Pulse: 83 (QS system process) LaborFlag: Antepartum (QS system process) Datetime: 11/14/2016 12:22 Patient Position/Activity: Left Lateral; Low Fowlers (Amalia Dela Cruz RN) Datetime: 11/14/2016 12:14 IV/Blood Work: IV Started; IV Bolus Started (Amalia Dela Cruz RN) Patient Care Comments: 18G Left forearm (Amalia Dela Cruz RN) Datetime: 11/14/2016 12:00 NBP Sys/Dulce/Mean (mmHg): 132 (QS system process) : 83 (QS system process) : 100 (QS system process) Pulse: 93 (QS system process) Monitor Mode: External; Palpation (Amalia Dela Cruz RN) Frequency (min): 2.5-6 (Amalia Dela Cruz RN) Quality: Mild/Moderate (Amalia Dela Cruz RN) Duration (sec): 50-110 (Amalia eDla Cruz RN) Resting Tone (Palpate): Relaxed (Amalia Dela Cruz RN) Monitor Mode: External US (Amalia Dela Cruz RN) FHR Baseline Rate : 140 (Amalia Dela Cruz RN) Variability: Moderate 6-25 bpm (Amalia Dela Cruz RN) Accelerations: 15X15 (Amalia Dela Cruz RN) LaborFlag: Antepartum (QS system process)
[2016-11-14] MEDS ORDERED: MISOPROSTOL 0.2 MG TABLET ONE (15:42)
[2016-11-14] MEDS ORDERED: LIDOCAINE 1% INJ-PF (10 MG/ML) 30 ML SDV ONE (15:42)
[2016-11-14] MEDS ORDERED: OXYTOCIN/NORMAL SALINE 20 UNIT/1,000 ML RTUINJ ONE (15:42)
--- NOTE | 2016-11-14 16:01 | L&D Flow Sheet ---
LD Flowsheet Datetime Report Generated by CPN: 11/14/2016 16:00 Datetime: 11/14/2016 15:59 NBP Sys/Dulce/Mean (mmHg): 145 (QS system process) : 85 (QS system process) : 107 (QS system process) Pulse: 100 (QS system process) Datetime: 11/14/2016 15:58 Stage of : Recovery (Hanh Marhefka, RN) Datetime: 11/14/2016 15:47 Comments: viable baby boy (Hanh Marhefka, RN) Stage 2 Comments: Delivery of head (Hanh Marhefka, RN) Datetime: 11/14/2016 15:43 Comments: RN and provider continuously monitoring FHTs while pt pushing. (Hanh Marhefka, RN) Datetime: 11/14/2016 15:39 Dilatation (cm): 10.0 (Hanh Sailajafka, RN) Effacement (%): 100 (Hanh Marhefka, RN) Station: 2 (Hanh Marhefka, RN) Exam by: Anam Dela Cruz RN (Hanh Henning RN) Datetime: 11/14/2016 15:34 Variability: Moderate 6-25 bpm (Niyah Preeti, RNC) Accelerations: 15X15 (Niyah Preeti, RNC) Decelerations: None (Niyah Preeti, RNC) Datetime: 11/14/2016 15:29 Stage of : Labor (Niyah Álvarez, RNC) NBP Sys/Dulce/Mean (mmHg): 120 (QS system process) : 65 (QS system process) : 87 (QS system process) Pulse: 81 (QS system process) Monitor Mode: External (Niyah Álvarez RNC) Monitor Interventions for UA: [place] Adjusted (Niyah Preeti, RNC) Frequency (min): 2-3 (Niyah Preeti, RNC) Quality: Moderate to Strong (Niyah Preeti, RNC) Duration (sec): 60 (Niyah Preeti, RNC) Pattern: Normal: <= 5 Contractions in 10 Minutes (EDGARDO Ha) Resting Tone (Palpate): Relaxed (EDGARDO Ha) Monitor Mode: External US (EDGARDO Ha) Monitor Interventions for FHR: Ultrasound Adjusted (EDGARDO Ha) FHR Baseline Rate : 130 (EDGARDO Ha) FHR Baseline Changes: No Baseline Change (EDGARDO Ha) LaborFlag: Labor (QS system process) Datetime: 11/14/2016 15:03 Dilatation (cm): 7.0 (Marco Smith RN) Effacement (%): 100 (Marco Smith RN) Station: -1 (Marco Smith RN) Exam by: Chelly Patricia CNM (Marco Smith RN) Communication Comments: Chelly Patricia CNM at bedside to assess pt (Marco Smith RN) Datetime: 11/14/2016 14:29 NBP Sys/Dulce/Mean (mmHg): 130 (QS system process) : 69 (QS system process) : 94 (QS system process) Pulse: 71 (QS system process) LaborFlag: Antepartum (QS system process) Datetime: 11/14/2016 14:14 Monitor Interventions for FHR: Ultrasound Adjusted (Amalia Dela Cruz RN) Datetime: 11/14/2016 14:00 Monitor Mode: External (Amalia Dela Cruz RN) Frequency (min): 2-6.5 (Amalia Dela Cruz RN) Quality: Moderate (Amalia Dela Cruz RN) Duration (sec): 80-100 (Amalia Dela Cruz RN) Resting Tone (Palpate): Relaxed (Amalia Dela Cruz RN) Monitor Mode: External US (Amalia Dela Cruz RN) FHR Baseline Rate : 135 (Amalia Dela Cruz RN) Variability: Moderate 6-25 bpm (Amalia Dela Cruz RN) Accelerations: 15X15 (mAalia Dela Cruz RN) Decelerations: Late (Amalia Dela Cruz RN) Actions for Decelerations: Side to Side (Amalia Dela Cruz RN)
[2016-11-14] MEDS ORDERED: ACETAMINOPHEN WITH CODEINE #3 TABLET ONE (16:24)
[2016-11-14] MEDS ORDERED: DIPH/PERTUSS(ACELL)/TETANUS VAC/PF 0.5 ML SYR (>=10YO) IM PRN (16:51)
[2016-11-14] MEDS ORDERED: ZOLPIDEM TARTRATE 5 MG TABLET PO PRN (16:51)
[2016-11-14] MEDS ORDERED: BENZOCAINE/MENTHOL AEROSOL SPRAY 56 ML TOP PRN (16:51)
[2016-11-14] MEDS ORDERED: MEASLES,MUMPS&RUBELLA VACC/PF 0.5 ML VIAL SUBCUT PRN (16:51)
[2016-11-14] MEDS ORDERED: ACETAMINOPHEN WITH CODEINE #3 TABLET PO PRN (16:51)
[2016-11-14] MEDS ORDERED: DIBUCAINE 1% OINTMENT 28 GM TP PRN (16:51)
--- NOTE | 2016-11-14 17:14 | Admission Physical ---
Datetime Report Generated by CPN: 11/14/2016 17:14 CURRENT ADMISSION Chief Complaint: Uterine Contractions Admit Plan: Admit to Unit; Initiate Labor Protocol ALLERGIES Medication Allergies: No Medication Allergies: No Known Allergies (11/14/2016) Latex: No Latex Allergies Food Allergies: none Environmental Allergies: none OBSTETRICAL HISTORY EDC: 11/13/2016 00:00 : 4 Para: 2 Term: 2 : 0 SAB: 1 Ectopic: 0 Livin Cesareans: 0 VBACs: 0 Multiple Births: 0 Gestational Diabetes: Yes Rh Sensitization: No Incompetent Cervix: No JT: No Infertility: No ART Treatment: No Uterine Anomaly: No IUGR: No Hx Previous C/S: No Macrosomia: No Hx Loss/Stillborn: No PIH: No Hx : No Placenta Previa/Abruption: Yes Depression/PP Depression: Yes PTL/PROM: No Post Hemorrhage: No Current Procedures: Ultrasound; NST Obstetrical History Comments: G1: 2003 or 2004 3 month demise G2: 39 wks 2005 G3: VD 39 wks 2009 G4: Current, GDM, previa, placenta moved to 2.6 cm away from cx as of 09/22, GDM SEE RECORDS Alcohol: No Marijuana : No Cocaine: No Other Illicit Drugs: No Cigarettes: Current Everyday Smoker. [id number] Cigarette Frequency: 5 - 10 per day Advised to Stop: Yes MEDICAL HISTORY Diabetes: Yes Diabetes Type: Gestational Diabetes Blood Transfusion: No Pulmonary Disease (Asthma, TB): No Breast Disease: No Hypertension: No [place] Surgery: No Heart Disease: No Hosp/Surgery: No Autoimmune Disorder: No Anesthetic Complications: No Kidney Disease: No Abnormal Pap Smear: Yes Neuro/Epilepsy: No Psychiatric Disorders: No Other Medical Diseases: No Hepatitis/Liver Disease: No Significant Family History: No Varicosities/Phlebitis: No Trauma/Violence : No Thyroid Dysfunction: No Medical History Comments: [facility] 2013 INFECTIOUS HISTORY Gonorrhea: No Genital Herpes: Yes Chlamydia: No Tuberculosis: No Syphilis: No Hepatitis: No HIV/AIDS Exposure: No Rash or Viral Illness: No HPV: No Infectious History Comments: Hx HSV, genital warts and condyloma covering labia/rectum/perineum PHYSICAL EXAM General: Normal HEENT: Normal Neurologic: Normal Thyroid: Normal Heart: Normal Lungs: Normal Breast: Normal Back: Normal Abdomen: Normal Genitourinary Exam: Normal Extremities: Normal DTRs: Normal Pelvic Type: Adequate Vital Signs: Reviewed MEMBRANES Membranes: Intact Amniotic Fluid Color: Meconium, Particulate FETUS A EGA: 40.1 Monitoring: External US FHR- Baseline: 130 Variability: Moderate 6-25bpm Accelerations: 15X15 Decelerations: None Presentation: Vertex Admit Comment: 31 yo sent from office with advanced cervical dilatation pt with gestational diabetes EDC 11/13/16 EGA 40.1 history of HSV- abdomen nontender FHTs 130s cat 1 pt breathing through contractions admit pain management anticipate delivery LEEP 2013 obesity PLANS FOR LABOR AND DELIVERY Labor and Delivery: None Pain Management: Epidural Feeding Preference: Both Benefit of Breast Feed Discussed: Yes Circumcision: Yes INFORMED CONSENT Informed Consent Obtained: Vaginal Delivery; Section Delivery; Risks, Benefits and Alternatives Discussed Assignment: Elise Robertson MD Signature: with User ID: [email or web address] : with User ID: [email or web address]
[2016-11-14] MEDS: ACETAMINOPHEN WITH CODEINE #3 TABLET PO PRN (18:48)
[2016-11-14] MEDS: DOCUSATE SODIUM 100 MG CAPSULE PO SCH (18:48)
[2016-11-14] MEDS: FERROUS SULFATE 325 MG TABLET PO SCH (18:48)
--- NOTE | 2016-11-14 19:01 | L&D Flow Sheet ---
LD Flowsheet Datetime Report Generated by CPN: 11/14/2016 19:00 Datetime: 11/14/2016 16:58 NBP Sys/Dulce/Mean (mmHg): 120 (QS system process) : 71 (QS system process) : 90 (QS system process) Pulse: 72 (QS system process) Datetime: 11/14/2016 16:45 Pain Pain Scale: 2 (Amalia Dela Cruz RN) Pain Presence: Constant (Amalia Dela Cruz, ELEANOR) Pain Type: Cramping; Dull; Ache (Amalia Dela Cruz, ELEANOR) Pain Location: Abdomen; Perineum (Amalia Dela Cruz RN) Pain Goal: 1 (Amalia Dela Cruz RN) Pain Assessment Comments: patient would like to wait on taking pain meds until she has something to eat (Amalia Dela Cruz RN) Datetime: 11/14/2016 16:30 Pain Pain Scale: 2 (Amalia Dela Cruz RN) Pain Presence: Constant (Amalia Dela Cruz, RN) Pain Type: Cramping; Dull; Ache (Amalia Dela Cruz, RN) Pain Location: Abdomen; Perineum (Amalia Dela Cruz, RN) Pain Goal: 1 (Amalia Dela Cruz, RN) Datetime: 11/14/2016 16:29 NBP Sys/Dulce/Mean (mmHg): 129 (QS system process) : 66 (QS system process) : 88 (QS system process) Pulse: 76 (QS system process) Datetime: 11/14/2016 16:15 Pain Pain Scale: 2 (Amalia Dela Cruz, RN) Pain Presence: Constant (Amalia Dela Cruz, RN) Pain Type: Cramping; Dull; Ache (Amalia Dela Cruz, RN) Pain Location: Abdomen; Perineum (Amalia Dela Cruz, RN) Pain Goal: 1 (Amalia Dela Cruz, RN) Datetime: 11/14/2016 15:59 NBP Sys/Dulce/Mean (mmHg): 145 (QS system process) : 85 (QS system process) : 107 (QS system process) Pulse: 100 (QS system process) Datetime: 11/14/2016 15:58 Vital Signs Stage of : Recovery (Hanh Marhefka, RN) Datetime: 11/14/2016 15:47 Comments: viable baby boy (Hanh Marhefka, RN) Stage 2 Stage 2 Comments: Delivery of head (Hanh Marhefka, RN) Datetime: 11/14/2016 15:43 Comments: RN and provider continuously monitoring FHTs while pt pushing. (Hanh Marhefka, RN) Datetime: 11/14/2016 15:39 Vaginal Exam Dilatation (cm): 10.0 (Hanh Marhefka, RN) Effacement (%): 100 (Hanh Marlibradofka, RN) Station: 2 (Hanh Marhefka, RN) Exam by: Anam Dela Cruz RN (Hanh Marhefka, RN) Datetime: 11/14/2016 15:34 Variability: Moderate 6-25 bpm (Niyah Preeti, RNC) Accelerations: 15X15 (Niyah Preeti, RNC) Decelerations: None (Niyah Preeti, RNC) Datetime: 11/14/2016 15:29 Vital Signs Stage of : Labor (Niyah Preeti, RNC) NBP Sys/Dulce/Mean (mmHg): 120 (QS system process) : 65 (QS system process) : 87 (QS system process) Pulse: 81 (QS system process) Uterine Activity Monitor Mode: External (Niyah Preeti, RNC) Monitor Interventions for UA: [place] Adjusted (Niyah Preeti, RNC) Frequency (min): 2-3 (Niyah Preeti, RNC) Quality: Moderate to Strong (Niyah Preeti, RNC) Duration (sec): 60 (Niyah Preeti, RNC) Pattern: Normal: <= 5 Contractions in 10 Minutes (Niyah Preeti, RNC) Resting Tone (Palpate): Relaxed (Niyah Preeti, RNC) Assessment A Monitor Mode: External US (Niyah Preeti, RNC) Monitor Interventions for FHR: Ultrasound Adjusted (Niyah Preeti, RNC) FHR Baseline Rate : 130 (Niyah Preeti, RNC) FHR Baseline Changes: No Baseline Change (Niyah Preeti, RNC) LaborFlag: Labor (QS system process) Datetime: 11/14/2016 15:03 Vaginal Exam Dilatation (cm): 7.0 (Marco Sarah, RN) Effacement (%): 100 (Marco Sarah, RN) Station: -1 (Marco Sarah, RN) Exam by: A Emmel CNM (Marco Sarah, RN) Communication Communication Comments: A Emmel CNM at bedside to assess pt (Marco Sarah, RN) Datetime: 11/14/2016 14:29 NBP Sys/Dulce/Mean (mmHg): 130 (QS system process) : 69 (QS system process) : 94 (QS system process) Pulse: 71 (QS system process) LaborFlag: Antepartum (QS system process) Datetime: 11/14/2016 14:14 Monitor Interventions for FHR: Ultrasound Adjusted (Amalia Dela Cruz RN) Datetime: 11/14/2016 14:00 Uterine Activity Monitor Mode: External (Amalia Dela Cruz RN) Frequency (min): 2-6.5 (Amalia Dela Cruz RN) Quality: Moderate (Amalia Marlatt, RN) Duration (sec): 80-100 (Amalia Marlatt, RN) Resting Tone (Palpate): Relaxed (Amalia Marlatt, RN) Assessment A Monitor Mode: External US (Amalia Marlatt, RN) FHR Baseline Rate : 135 (Amalia Marlatt, RN) Variability: Moderate 6-25 bpm (Amalia Marlatt, RN) Accelerations: 15X15 (Amalia Marlatt, RN) Decelerations: Late (Amalia Marlatt, RN) Actions for Decelerations: Side to Side (Amalia Marlatt, RN) Datetime: 11/14/2016 13:59 NBP Sys/Dulce/Mean (mmHg): 139 (QS system process) : 76 (QS system process) : 101 (QS system process) Pulse: 75 (QS system process) LaborFlag: Antepartum (QS system process) Datetime: 11/14/2016 13:48 Patient Position/Activity: Right Lateral; Low Fowlers (Amalia Marlatt, RN) Datetime: 11/14/2016 13:30 Uterine Activity Monitor Mode: External (Amalia Marlatt, RN) Frequency (min): 1.5-6 (Amalia Marlatt, RN) Quality: Moderate (Amalia Marlatt, RN) Duration (sec): 60-100 (Amalia Marlatt, RN) Resting Tone (Palpate): Relaxed (Amalia Marlatt, RN) Assessment A Monitor Mode: External US (Amalia Marlatt, RN) FHR Baseline Rate : 130 (Amalia Marlatt, RN) Variability: Moderate 6-25 bpm (Amalia Marlatt, RN) Accelerations: 15X15 (Amalia Marlatt, RN) Decelerations: None (Amalia Marlatt, RN) Datetime: 11/14/2016 13:28 NBP Sys/Dulce/Mean (mmHg): 129 (QS system process) : 71 (QS system process) : 95 (QS system process) Pulse: 69 (QS system process) LaborFlag: Antepartum (QS system process) Datetime: 11/14/2016 13:00 Uterine Activity Monitor Mode: External; Palpation (Amalia Marlatt, RN) Frequency (min): 2-6.5 (Amalia Marlatt, RN) Quality: Mild/Moderate (Amalia Marlatt, RN) Duration (sec): 70-110 (Amalia Marlatt, RN) Resting Tone (Palpate): Relaxed (Amalia Marlatt, RN) Assessment A Monitor Mode: External US (Amalia Marlatt, RN) FHR Baseline Rate : 140 (Amalia Marlatt, RN) Variability: Moderate 6-25 bpm (Amalia Marlatt, RN) Accelerations: 15X15 (Amalia Marlatt, RN) Decelerations: Variable (Amalia Marlatt, RN) Datetime: 11/14/2016 12:58 NBP Sys/Dulce/Mean (mmHg): 117 (QS system process) : 72 (QS system process) : 89 (QS system process) Pulse: 75 (QS system process) LaborFlag: Antepartum (QS system process) Datetime: 11/14/2016 12:30 Uterine Activity Monitor Mode: External; Palpation (Amalia Dela Cruz RN) Frequency (min): 4-5.5 (Amalia Dela Cruz RN) Quality: Mild/Moderate (Amalia Dela Cruz RN) Duration (sec): 80-140 (Amalia Dela Cruz RN) Resting Tone (Palpate): Relaxed (Amalia Marlatt, RN) Assessment A Monitor Mode: External US (Amalia Mercedeslatt, RN) FHR Baseline Rate : 135 (Amalia Magolatt, RN) Variability: Moderate 6-25 bpm (Amalia Marlatt, RN) Accelerations: 15X15 (Amalia Marlatt, RN) Decelerations: Late (Amalia Magolatt, RN) Actions for Decelerations: Side to Side; IV Bolus (Amalia Magolatt, RN) Datetime: 11/14/2016 12:29 NBP Sys/Dulce/Mean (mmHg): 129 (QS system process) : 74 (QS system process) : 96 (QS system process) Pulse: 83 (QS system process) LaborFlag: Antepartum (QS system process) Datetime: 11/14/2016 12:22 Patient Position/Activity: Left Lateral; Low Fowlers (Amalia Mercedeslatt, RN) Datetime: 11/14/2016 12:14 Patient Care IV/Blood Work: IV Started; IV Bolus Started (Amalia Dela Cruz, RN) Patient Care Comments: 18G Left forearm (Amalia Marlatt, RN) Datetime: 11/14/2016 12:00 NBP Sys/Dulce/Mean (mmHg): 132 (QS system process) : 83 (QS system process) : 100 (QS system process) Pulse: 93 (QS system process) Uterine Activity Monitor Mode: External; Palpation (Amalia Marlatt, RN) Frequency (min): 2.5-6 (Amalia Marlatt, RN) Quality: Mild/Moderate (Amalia Marlatt, RN) Duration (sec): 50-110 (Amalia Marlatt, RN) Resting Tone (Palpate): Relaxed (Amalia Marlatt, RN) Assessment A Monitor Mode: External US (Amalia Marlatt, RN) FHR Baseline Rate : 140 (Amalia Marlatt, RN) Variability: Moderate 6-25 bpm (Amalia Marlatt, RN) Accelerations: 15X15 (Amalia Marlatt, RN) LaborFlag: Antepartum (QS system process) Datetime: 11/14/2016 11:30 Pain Pain Scale: 3 (Amalia Dela Cruz RN) Pain Presence: Intermittent (Amalia Dela Cruz, ELEANOR) Pain Type: Cramping (Amalia Dela Cruz, ELEANOR) Pain Location: Abdomen (Amalia Dela Cruz RN) Pain Goal: 1 (Amalia Dela Cruz RN) Pain Coping: Talking Through Contractions (Amalia Dela Cruz, ELEANOR) Vaginal Bleeding: None (Amalia Dela Cruz, ELEANOR) Maternal Assessment Level of Consciousness: Fully Conscious (Amalia Dela Cruz, RN) DTR's/Clonus: DTRs 2+; No Clonus (Amalia Chapatt, RN) Headache: Denies (Amalia Mercedeslatt, RN) Breath Sounds, Left: Clear and Equal (Amalia Mercedeslatt, RN) Breath Sounds, Right: Clear and Equal (Amalia Mercedselatt, RN) Nausea/Vomiting: Denies (Amalia Mercedeslatt, RN) RUQ Epigastric Pain: Denies (Amalia Marlatt, RN) Teaching Instructional Method: Demo; Verbal; Patient Instructed; Family/Support Person Instructed; Verbalized Understanding (Amalia Dela Cruz RN) Plan of Care: Plan of Care Discussed; Vaginal Delivery; Induction (Amalia Dela Cruz RN) Unit Routine: [place] to Room; Call Jiménez; Bed; Monitoring (Amlaia Dela Cruz RN) Labor/Induction: Labor Stages (Amalia Dela Cruz RN) LaborFlag: Antepartum (QS system process) Datetime: 11/14/2016 11:28 NBP Sys/Dulce/Mean (mmHg): 135 (QS system process) : 74 (QS system process) : 100 (QS system process) Pulse: 86 (QS system process) LaborFlag: Antepartum (QS system process)
[2016-11-14] MEDS: IBUPROFEN 800 MG TABLET PO SCH (21:35)
--- NOTE | 2016-11-14 21:47 | Delivery Summary ---
Del Sum A-C Datetime Report Generated by CPN: 11/14/2016 21:46 ADMISSION DATA Chief Complaint: Uterine Contractions Admission Impression: Term, Intrauterine Admit Provider Comments: 31 yo sent from office with advanced cervical dilatation pt with gestational diabetes EDC 11/13/16 EGA 40.1 history of HSV- abdomen nontender FHTs 130s cat 1 pt breathing through contractions admit pain management anticipate delivery LEEP 2013 obesity DELIVERY PERSONNEL Delivery Doctor:: Bruce Patricia CNM Labor and Delivery Nurse:: Hanh Henning RNlaborer construction or leak gang Nurse:: Amalia Dela Cruz RN Nursery Nurse:: Adria Chang RN MATERNAL INFORMATION Delivery Anesthesia: None Medications After Delivery: Pitocin Bolus-Please Comment Meds After Delivery Comment: 20 Units Pitocin/1000ml NS Estimated Blood Loss (ml): 350 Maternal Complications: None Provider Comments: delivery of viable male over 2nd degree laceration condyloma over labia and perineum ROMULO apgars 9/9 bulb suctioned on perineum infant to abdomen cord clamped and cut by FOB 2nd degree vaginal and perineal laceration repaired under 1 % lidocaine placenta intact EBL 350 cc hemostasis achieved LABOR SUMMARY EDC: 11/13/2016 00:00 No. Babies in Womb: 1 Attempted: No Labor Anesthesia: None LABOR INFORMATION Reason for Induction: Not Applicable Reason for Induction- Other: active labor with SROM Onset of Labor: 11/14/2016 11:30 Complete Dilatation: 11/14/2016 15:39 Oxytocin: N/A Group B Beta Strep: negative Antibiotics # of Doses: 0 Antibiotics Time of Last Dose: N/A Steroids Given: None Reason Steroids Not Administered: Not Applicable MEMBRANES Membranes Rupture Method: Spontaneous Rupture of Membranes: 11/14/2016 15:03 Length of Rupture (hr): 0.73 Amniotic Fluid Color: Clear Amniotic Fluid Amount: Small Amniotic Fluid Odor: Normal STAGES OF LABOR Stage 1 hr: 4 Stage 1 min: 9 Stage 2 hr: 0 Stage 2 min: 8 Stage 3 hr: 0 Stage 3 min: 4 Total Time in Labor hr: 4 Total Time in Labor min: 21 VAGINAL DELIVERY Episiotomy: None Laceration Extension: Second Degree Laceration Type: Vaginal Laceration Repair: Yes Sponge Count Correct: N/A Sharps Count Correct: N/A BABY A INFORMATION Delivery Date/Time: 11/14/2016 15:47 Method of Delivery: Vaginal Born in Route : No : N/A Forceps: N/A Vacuum Extraction: N/A Shoulder Dystocia : Yes PRESENTATION/POSITION BABY A Presentation: Cephalic Cephalic Presentation: Vertex Vertex Position: Right Occipital Anterior Breech Presentation: N/A PLACENTA INFORMATION BABY A Placenta Delivery Time : 11/14/2016 15:51 Placenta Method of Delivery: Spontaneous Placenta Status: Delivered SCORES BABY A Heart Rate 1 min: >100 bpm Resp Effort 1 min: Good Cry Reflex Irritability 1 min: Cough or Sneeze or Pulls Away Muscle Tone 1 min: Active Motion Color 1 min: Body [place], Extremities Blue Resuscitation Effort 1 min: Tactile Stimulation SCORE 1 MIN: 9 Heart Rate 5 min: >100 bpm Resp Effort 5 min: Good Cry Reflex Irritability 5 min: Cough or Sneeze or Pulls Away Muscle Tone 5 min: Active Motion Color 5 min: Body [place], Extremities Blue Resuscitation Effort 5 min: Tactile Stimulation SCORE 5 MIN: 9 INFANT INFORMATION BABY A Gestational Age at Delivery: 40.1 Gestational Status: Full Term- 39- 40.6 Weeks Infant Outcome : Liveborn Condition : Stable Sex: Male IDENTIFICATION BABY A Verification Date/Time: 11/14/2016 16:14 ID Band Number: [id number] Mother's Name Verified: Yes RN Verifying : RDipti Henning, RN/K. Magoninitt, RN WEIGHT/LENGTH BABY A Birthweight (gm): 3025 Weight (lb): 6 Infant Weight (oz): 11 Length (in): 19.00 Infant Length (cm): 48.26 CORD INFORMATION BABY A No. Cord Vessels: 3 Nuchal Cord : N/A Cord Blood Taken: Yes-For Eval (Mom's Blood Type - or O+) Suction: Mouth ASSESSMENT BABY A Infant Complications: None Physical Findings at Delivery: Within Normal Limits Respirations: Appears Normal Skin to Skin: Yes Skin to Skin Time (min): 60 Long Lines Operator/ALS Called : No Infant Care By: Adria Chang RN Transferred To: Remains with Mother BABY B INFORMATION : N/A SIGNATURES Assignment: Elise Robertson MD Signature: with User ID: [email or web address] : with User ID: Emma
[2016-11-15] MEDS: ACETAMINOPHEN WITH CODEINE #3 TABLET PO PRN ×3 (04:08→19:58)
[2016-11-15] MEDS: IBUPROFEN 800 MG TABLET PO SCH ×3 (05:49→21:10)
--- NOTE | 2016-11-15 06:02 | L&D General Admission ---
General Admit Datetime Report Generated by CPN: 11/15/2016 06:00 INFORMATION Patient Age: 31 (10/24/2016 00:11:QS system process) EDC: 11/13/2016 00:00 (10/24/2016 00:17:Sirena Avendaño) EDC per Ultrasound: 11/13/2016 00:00 (10/24/2016 00:17:Amanda Ramey RN) : 4 (10/24/2016 00:17:Amanda Ramey RN) Para: 2 (10/30/2016 01:16:Gisela Gambino RN) Term: 2 (10/24/2016 00:17:Sirena Avendaño) : 0 (10/24/2016 00:17:Sirena Avendaño) Spontaneous Abortions: 1 (10/24/2016 00:17:Sirena Avendaño) Livin (10/24/2016 00:17:Sirena Avendaño) Cesareans: 0 (10/24/2016 00:17:Sirena Avendaño) VBACs: 0 (10/24/2016 00:17:Sirena Avendaño) Ectopic: 0 (10/24/2016 00:17:Sirena Avendaño) Multiple Births: 0 (10/24/2016 00:17:Sirena Avendaño) Baby, Number in Womb: 1 (11/03/2016 05:13:Meryl Turner RN) CARE Primary Senior Database Administrator: [facility] (10/24/2016 00:17:Sirena Avendaño) Adequate Care: Yes (10/24/2016 00:17:Sirena Avendaño) Height (in): 67 (11/14/2016 18:40:QS system process) ALLERGIES Medication Allergy: No (10/24/2016 00:17:Sirena Avendaño) Medication Allergies: No Known Allergies (11/14/2016) (11/14/2016 11:22:QS system process) Latex Allergy: No Latex Allergies (10/24/2016 00:17:Sirena Avendaño) Food Allergies: none (10/24/2016 00:17:Sirena Avendaño) Environmental Allergies: none (10/24/2016 00:17:Jennifer Scott RN) COMMUNICATION Primary Language: Ecuadorean (10/24/2016 00:17:Sirena Avendaño) Medical Tx Preferred Language: Ecuadorean (10/24/2016 00:17:Sirena Avendaño) DEMOGRAPHICS Address: [address] [place] [id number] (10/24/2016 00:11:QS system process) Zipcode: [address] (10/24/2016 00:11:QS system process) Home (10/24/2016 00:11:QS system process) Work (10/24/2016 00:11:QS system process) SSN: [id number] (10/24/2016 00:11:QS system process) Next of Kin Name: CLIFF SILVA (10/24/2016 00:11:QS system process) Next of Kin (10/24/2016 00:11:QS system process) Next of Kin Relationship: SPO (10/24/2016 00:11:QS system process) Date of : 1985 (10/24/2016 00:11:QS system process) Marital Status: (10/24/2016 00:11:QS system process) Sex: Female (10/24/2016 00:11:QS system process) Race: (10/24/2016 00:11:QS system process) Ethnicity: Non- or (10/24/2016 00:11:QS system process) Yazidi: Other (10/24/2016 00:11:QS system process) DRUG AND ALCOHOL USE Alcohol: No (10/24/2016 00:17:Sirena Avendaño) Cigarettes: Current Everyday Smoker. [id number] (10/24/2016 00:17:Sirena Avendaño) Average Cigarettes Smoked: 5 - 10 per day (10/24/2016 00:17:Sirena Avendaño) Advised to Stop Smoking: Yes (10/24/2016 00:17:Sirena Avendaño) Marijuana: No (10/24/2016 00:17:Sirena Avendaño) Cocaine: No (10/24/2016 00:17:Sirena Avendaño) Other Illicit Drugs: No (10/24/2016 00:17:Sirena Avendaño) VACCINE HISTORY Influenza Vaccine: No (10/24/2016 00:17:Sirena Avendaño) Pneumococcal Vaccine: No (10/24/2016 00:17:Sirena Avendaño) Tetanus Vaccine: No (10/24/2016 00:17:Sirena Avendaño) Tdap Vaccine: Yes (10/24/2016 00:17:Sirena Avendaño) Tdap Date: 2015 (10/24/2016 00:17:Sirena Avendaño) Hepatitis B Vaccine: No (10/24/2016 00:17:Sirena Avendaño) Director Emergency: [facility] (10/24/2016 00:17:Sirena Avendaño) Feeding Preference: Both (10/24/2016 00:17:Sirena Avendaño) Benefit of Breast Feed Discussed: Yes (10/24/2016 00:17:Amalia Dela Cruz RN) Circumcision: Yes (10/24/2016 00:17:Sirena Avendaño) Classes Attended: No (10/24/2016 00:17:Sirena Avendaño) Tubal Ligation: No (10/24/2016 00:17:Sirena Avendaño) Tubal Authorization Signed: N/A (10/24/2016 00:17:Sirena Avendaño) Consent: N/A (10/24/2016 00:17:Sirena Avendaño) Consent Signed: N/A (10/24/2016 00:17:Sirena Avendaño) Pain Management Plans: Epidural (10/24/2016 00:17:Sirena Avendaño) Plans for Labor and Delivery: None (10/24/2016 00:17:Sirena Avendaño) Support Person: slick (10/24/2016 00:17:Sirena Avendaño) Support Person Relationship: (10/24/2016 00:17:Sirena Avendaño) Other Relationship: friend (10/24/2016 00:17:Sirena Avendaño) Cultural/Spritual Practice: N/A (10/24/2016 00:17:Sirena Avendaño) Spir/Cult Dietary Needs: N/A (10/24/2016 00:17:Sirena Avendaño) LIVING SITUATION/DISCHARGE PLAN Living Arrangements: House (10/24/2016 00:17:Sirena Avendaño) Adequate Access to:: Electric; Heat; Refrigeration; Plumbing/Running water; Phone; Transportation (10/24/2016 00:17:Sirena Avendaño) WIC Program: Yes (10/24/2016 00:17:Sirena Avendaño) Discharge Procedural Nurse Person: [facility] (10/24/2016 00:17:Sirena Avendaño) Person to Help after Discharge: [facility] (10/24/2016 00:17:Sirena Avendaño) Currently Using Commun Resources: Yes (10/24/2016 00:17:Sirena Avendaño) Specify Current Resource Used: medicaid (10/24/2016 00:17:Sirena Avendaño) Car Seat for Discharge: Yes (10/24/2016 00:17:Sirena Avendaño) Adoption Requested: No (10/24/2016 00:17:Jennifer Scott RN) Pt Contact w/infant Post : N/A (10/24/2016 00:17:Jennifer Scott RN) LABS Blood Type: O Positive (10/24/2016 00:17:Amanda Ramey RN) Antibody Screen: negative (10/24/2016 00:17:Amanda Ramey RN) Hemoglobin: 12.5 (11/14/2016 12:00:QS system process) Hematocrit: 36.5 (11/14/2016 12:00:QS system process) MCV: 91 (11/14/2016 12:00:QS system process) Group Beta Strep: negative (10/24/2016 00:17:Amanda Ramey RN) Gonorrhea: Negative (10/24/2016 00:17:Amanda Ramey RN) Chlamydia: Negative (10/24/2016 00:17:Amanda Ramey RN) RPR/VDRL: Nonreactive (10/24/2016 00:17:Amanda Ramey RN) HIV Exposure Test: Negative (10/24/2016 00:17:Amanda Ramey RN) Hepatitis B: Negative (10/24/2016 00:17:Amanda Ramey RN) Rubella: Immune (10/24/2016 00:17:Amanda Ramey RN) OB/PREVIOUS HISTORY Previous Procedures: Ultrasound; NST (10/24/2016 00:17:Sirena Avendaño) Current Procedures: Ultrasound; NST (10/24/2016 00:17:Sirena Avendaño) History of Previous : No (10/24/2016 00:17:Sirena Avendaño) History of Gestational Diabetes: Yes (10/24/2016 00:17:Sirena Avendaño) History of PIH: No (10/24/2016 00:17:Sirena Avendaño) History of Incompetent Cervix: No (10/24/2016 00:17:Sirena Avendaño) History of Placenta Previa/Abrup: Yes (10/24/2016 00:17:Sirena Avendaño) History of Macrosomia: No (10/24/2016 00:17:Sirena Avendaño) History of IUGR: No (10/24/2016 00:17:Sirena Avendaño) History of Hemorrhage: No (10/24/2016 00:17:Sirena Avendaño) History of Loss/Stillborn: No (10/24/2016 00:17:Sirena Avnedaño) History of : No (10/24/2016 00:17:Sirena Avendaño) History of D (Rh) Sensitization: No (10/24/2016 00:17:Sirena Avendaño) History Recurrent Loss/Stillborn: No (10/24/2016 00:17:Sirena Avendaño) History Depression/PP Depression: Yes (10/24/2016 00:17:Sirena Avendaño) History of Uterine Anomaly/JT: No (10/24/2016 00:17:Sirena Avendaño) History of Infertility: No (10/24/2016 00:17:Sirena Avendaño) History of ART Treatment: No (10/24/2016 00:17:Sirena Avendaño) History of JT: No (10/24/2016 00:17:Sirena Avendaño) Comments Obstetrical History: G1: 2004 or 2005 3 month demise G2: 39 wks 2006 G3: VD 39 wks 2009 G4: Current, GDM, previa, placenta moved to 2.6 cm away from cx as of 09/22, GDM (10/24/2016 00:17:Amanda Ramey RN) MEDICAL HISTORY Med Hx Diabetes: Yes (10/24/2016 00:17:Sirena Avendaño) Diabetes Type: Gestational Diabetes (10/24/2016 00:17:Sirena Avendaño) Med Hx Hypertension: No (10/24/2016 00:17:Sirena Avendaño) Med Hx Heart Disease: No (10/24/2016 00:17:Sirena Avendaño) Med Hx Autoimmune Disorder: No (10/24/2016 00:17:Sirena Avendaño) Med Hx Kidney Disease/UTI: No (10/24/2016 00:17:Sirena Avendaño) Med Hx Neurologic/Epilepsy: No (10/24/2016 00:17:Sirena Avendaño) Med Hx Psychiatric Disorders: No (10/24/2016 00:17:Sirena Avendaño) Med Hx Hepatitis/Liver Disease: No (10/24/2016 00:17:Sirena Avendaño) Med Hx Varicosities/Phlebitis: No (10/24/2016 00:17:Sirena Avendaño) Med Hx Thyroid Dysfunction: No (10/24/2016 00:17:Sirena Avendaño) Med Hx Trauma/Violence: No (10/24/2016 00:17:Sirena Avendaño) Med Hx Blood Transfusion: No (10/24/2016 00:17:Sirena Avendaño) Med Hx Pulmonary (Asthma,TB): No (10/24/2016 00:17:Sirena Avendaño) Med Hx Breast: No (10/24/2016 00:17:Sirena Avendaño) Med Hx MAINFRAME ARCHITECT Surgery: No (10/24/2016 00:17:Sirena Avendaño) Med Hx Hospitalization/Surgery: No (10/24/2016 00:17:Sirena Avendaño) Med Hx Anesthetic Complications: No (10/24/2016 00:17:Sirena Avendaño) Med Hx Abnormal Pap Smear: Yes (10/24/2016 00:17:Amanda Ramey RN) Other Medical Diseases: No (10/24/2016 00:17:Sirena Avendaño) Med Hx Significant Family Hx: No (10/24/2016 00:17:Sirena Avendaño) Details of Med/Surg Hx: LEEP 2013 (10/24/2016 00:17:Amanda Ramey RN) INFECTIOUS HISTORY Inf Hx Gonorrhea: No (10/24/2016 00:17:Sirena Avendaño) Inf Hx Chlamydia: No (10/24/2016 00:17:Sirena Avendaño) Inf Hx Syphilis: No (10/24/2016 00:17:Sirena Avendaño) Inf Hx HIV/AIDS: No (10/24/2016 00:17:Sirena Avendaño) Inf Hx Human Papilloma Virus: No (10/24/2016 00:17:Sirena Avendaño) Inf Hx Pt/Partner Genital Herpes: Yes (10/24/2016 00:17:Amanda Ramey RN) Inf Hx Tuberculosis/Exposure: No (10/24/2016 00:17:Sirena Avendaño) Inf Hx Hepatitis B,C: No (10/24/2016 00:17:Sirena Avendaño) Inf Hx Rash or Viral Illness: No (10/24/2016 00:17:Sirena Avendaño) Details of Infectious Hx: Hx HSV, genital warts and condyloma covering labia/rectum/perineum (10/24/2016 00:17:Amanda Ramey RN) GENETIC HISTORY Gen Hx Age >=35 at AMY: No (10/24/2016 00:17:Sirena Avendaño) Gen Hx Thalassemia: No (10/24/2016 00:17:Sirena Avendaño) Gen Hx Congenital Heart Defect: No (10/24/2016 00:17:Sirena Avendaño) Gen Hx Neural Tube Defect: No (10/24/2016 00:17:Sirena Avendaño) Gen Hx Down's Syndrome: No (10/24/2016 00:17:Sirena Avendaño) Gen Hx Luis Alfredo-Sachs: No (10/24/2016 00:17:Sirena Avendaño) Gen Hx Kwasi: No (10/24/2016 00:17:Sirena Avendaño) Gen Hx Familial Dysautonomia: No (10/24/2016 00:17:Sirena Avendaño) Gen Hx Sickle Cell Disease/Trait: No (10/24/2016 00:17:Sirena Avendaño) Gen Hx Hemophilia/Blood Disorder: No (10/24/2016 00:17:Sirena Avendaño) Gen Hx Muscular Dystrophy: No (10/24/2016 00:17:Sirena Avendaño) Gen Hx Cystic Fibrosis: No (10/24/2016 00:17:Sirena Avendaño) Gen Hx Huntingtons Chorea: No (10/24/2016 00:17:Sirena Avendaño) Gen Hx Mental Retardation/Autism: No (10/24/2016 00:17:Sirena Avendaño) Gen Hx Tested for Fragile X: No (10/24/2016 00:17:Sirena Avendaño) Gen Hx Other Inher/Chromosomal: No (10/24/2016 00:17:Sirena Avendaño) Gen Hx Maternal Metabolic DO: No (10/24/2016 00:17:Sirena Avendaño) Gen Hx Pt Father or FOB Defect: No (10/24/2016 00:17:Sirena Avendaño) Gen Hx Other Genetic History: No (10/24/2016 00:17:Sirena Avendaño) Gen Hx Drugs/Meds since LMP: No (10/24/2016 00:17:Sirena Avendaño)
--- NOTE | 2016-11-15 06:02 | L&D Current Admission ---
Current Admit Datetime Report Generated by CPN: 11/15/2016 06:00 ADMISSION INFORMATION Chief Complaint: Scheduled Induction of Labor; Contractions (11/14/2016 11:30:Amalia Dela Cruz RN)
--- NOTE | 2016-11-15 06:16 | L&D Care Plan ---
LD CARE PLANS Datetime Report Generated by CPN: 11/15/2016 06:15 Datetime: 11/14/2016 12:30 Pain State: Risk For (Amalia Dela Cruz RN) Related To: Labor and Delivery Process (Amalia Dela Cruz RN) Goal(s): Patients Pain will be Assessed and Managed; Patient will Verbalize Adequate Relief of Pain or the Ability to [place] with Current Pain (Amalia Dela Cruz RN) Interventions: Assess Pain Severity on Scale of 0 (None) to 5 (Severe); Assess Type, Location and Intensity of Pain Each Time Client Reports Discomfort and Notify Provider if Unusal Pain Develops; Encourage Proper Breathing and Relaxation Techniques; Offer Alternatives Such as Repositioning, Calm Environment, Massages, Diversional Activities, Ice Pack, Splinting, and Ambulation; Administer Analgesics as Ordered; Assist with Epidural Placement as Appropriate; Evaluate Therapeutic Effectiveness of Medication and Treatments (Amalia Dela Cruz RN) Outcome: Patient will Report Absence or Relief of Pain Consistent with Established Pain Goal (Amalia Dela Cruz RN) Status: Ongoing (Amalia Dela Cruz RN) Outcome: Patient will have a Decrease in Signs and Symptoms of Discomfort (Amalia Dela Cruz RN) Status: Ongoing (Amalia Dela Cruz RN) Outcome: Pain will be Controlled During Procedures (Amalia Dela Cruz RN) Status: Ongoing (Amalia Dela Cruz RN) Anxiety State: Risk For (Amalia Dela Cruz RN) Related To: Labor and Delivery Process (Amalia Dela Cruz RN) Goal(s): Patient will have Decreased Anxiety and be able to Function at Acceptable Levels (Amalia Dela Cruz RN) Interventions: Assess Verbal and Nonverbal Behavioral Indicators of Anxiety; Assist Patient to Identify and Verbalize Symptoms of Anxiety; Identify and Demonstrate Techniques to Control Anxiety; Assist Patient with Coping Mechanisms to Manage Anxiety; Provide Theraputic Touch for the Patient; Explain to Patient, Using a Calm Reassuring Approach and Nonmedical Terms, All Activities, Procedures, and Concerns; Instruct Patient and Family about Post Discharge Care, Limitations, Symptoms to Report and Resources Available (Amalia Dela Cruz RN) Outcome: Patient will Identify, Verbalize and Demonstrate Techniques to Control Anxiety (Amalia Dela Cruz RN) Status: Ongoing (Amalia Dela Cruz RN) Outcome: Patient's Posture, Facial Expressions, Gestures and Activity Level will Reflect Decreased Anxiety (Amalia Dela Cruz RN) Status: Ongoing (Amalia Dela Cruz RN) Outcome: Patient will Verbalize a Sense of Control and/or Acceptance of the Situation (Amalia Dela Cruz RN) Status: Ongoing (Amalia Dela Cruz RN) Outcome: Patient will Identify and Utilize Support Person (Amalia Dela Cruz RN) Status: Ongoing (Amalia Dela Cruz RN) Knowledge Deficit State: Risk For (Amalia Dela Cruz RN) Related To: Labor and Delivery Process (Amalia Dela Cruz RN) Goal(s): Patient will Accurately Verbalize Understanding of Plan of Care and Treatment; Patient and Family will Accurately Verbalize Understanding of the Disease Process (Amalia Dela Cruz RN) Interventions: Assess Motivation and Willingness of Patient/Family to Learn; Assess Preferred Learning Mode: One to One Instruction, Reading, Videos, Group Discussion or Demonstration; Assess Barriers to Learning: Pain, Emotional State, Language Barrier, Cognitive Impairment, Visual or Hearing Deficits; Assess Patient and Family Knowledge of Disease Process, Medications and Treatment; Discuss Therapy and/or Treatment Options, Describe Rationale Behind Management, Therapy and Treatment Recommendations; Instruct Patient and Family on Signs and Symptoms to Report; Instruct Patient and Family on Medication Effects and Side Effects; Provide Appropriate and Timely Education Using Multiple Techniques; Provide Patient and Family with Support Group Information and Resources; Give Clear and Thorough Explanations and Demonstrations (Amalia Dela Cruz RN) Outcome: Patient and Family will Verbalize Understanding of Condition, Treatment and Signs and Symptoms to Report (Amalia Dela Cruz RN) Status: Ongoing (Amalia Dela Cruz RN) Outcome: Patient will Identify Perceived Learning Needs and Express Motivation to Learn (Amalia Dela Cruz RN) Status: Ongoing (Amalia Dela Cruz RN) Outcome: Patient will Verbalize Understanding of Desired Content, and/or Performs Desired Skill Prior to Discharge (Amalia Dela Cruz RN) Status: Ongoing (Amalia Dela Cruz RN)
[2016-11-15 07:50] LABS: HEMATOCRIT 32.9 % (36.0-47.0); HEMOGLOBIN 11.2 g/dL (12.0-15.5); HGB HCT DIFFERENCE 0.7; MEAN CORPUSCULAR HEMOGLOBIN 31.1 pg (27.0-33.4); MEAN CORPUSCULAR HGB CONC 34.1 g/dL (32.0-36.0); MEAN CORPUSCULAR VOLUME 91 fl (80-97); RED BLOOD COUNT 3.61 10^6/uL (3.72-5.28); RED CELL DISTRIBUTION WIDTH 14.8 % (11.5-14.0); WHITE BLOOD COUNT 12.5 10^3/uL (4.0-10.5)
[2016-11-15] MEDS: FERROUS SULFATE 325 MG TABLET PO SCH ×2 (09:10→17:40)
[2016-11-15] MEDS: DOCUSATE SODIUM 100 MG CAPSULE PO SCH ×2 (09:10→17:41)
[2016-11-15] MEDS: PRENATAL VITAMIN W-O CA NO5/FE FUMARATE/FA CAPSULE PO SCH (09:11)
[2016-11-15] MEDS: SENNOSIDES/DOCUSATE 8.6-50 MG 1 EACH TABLET PO SCH (09:11)
--- NOTE | 2016-11-15 09:51 | PDOC PROGRESS REPORT ---
Subjective-OB Subjective: Post Delivery Day: 1 31 year old. Denies any needs at this time, states lochia is stable, pain is well controlled, voiding without difficulty. Physical Exam (OB) Vital Signs: Temp Pulse Resp BP Pulse Ox 97.4 F 70 15 119/68 98 11/15/16 08:44 11/15/16 08:44 11/15/16 08:44 11/15/16 08:44 11/15/16 08:44 Intake & Output 11/14/16 11/15/16 11/16/16 06:59 06:59 06:59 Weight 79.6 kg - Lochia Lochia Amount: Small 10-25 ml Lochia Color: Rubra/Red - Abdomen Description: Soft, Round Hernia Present: No Fundal Description: Firm, Midline Fundal Height: u/u - u/2 Objective-Diagnostic Laboratory: 11/15/16 07:08 11/14/16 11/14/16 11/14/16 11:20 12:00 12:00 WBC 11.9 H RBC 4.01 Hgb 12.5 Hct 36.5 MCV 91 MCH 31.2 MCHC 34.3 RDW 14.9 H Plt Count 203 Urine Color YELLOW Urine Appearance SLIGHTLY-CLOUDY Urine pH 7.0 Ur Specific [place] 1.014 Urine Protein NEGATIVE Urine Glucose (UA) NEGATIVE Urine Ketones NEGATIVE Urine Blood LARGE H Urine Nitrite NEGATIVE Ur Leukocyte Esterase TRACE H Blood Type O POSITIVE Antibody Screen NEGATIVE 11/15/16 07:08 WBC 12.5 H RBC 3.61 L Hgb 11.2 L Hct 32.9 L MCV 91 MCH 31.1 MCHC 34.1 RDW 14.8 H Plt Count 166 Urine Color Urine Appearance Urine pH Ur Specific [place] Urine Protein Urine Glucose (UA) Urine Ketones Urine Blood Urine Nitrite Ur Leukocyte Esterase Blood Type Antibody Screen Assessment and Plan(PN) - Assessment and Plan (1) Vaginal delivery Is this a current diagnosis for this admission?: YesPlan: routine pp care - Time Spent with Patient Time with patient: Less than 15 minutes Critical Time spent with patient: Less than 15 minutes Medications reviewed and adjusted accordingly: Yes - Disposition Anticipated Discharge: Home Within: within 24 hours
[2016-11-16] MEDS: IBUPROFEN 800 MG TABLET PO SCH (06:01)
[2016-11-16] MEDS: DOCUSATE SODIUM 100 MG CAPSULE PO SCH (09:55)
[2016-11-16] MEDS: PRENATAL VITAMIN W-O CA NO5/FE FUMARATE/FA CAPSULE PO SCH (09:55)
[2016-11-16] MEDS: FERROUS SULFATE 325 MG TABLET PO SCH (09:55)
[2016-11-16] MEDS: SENNOSIDES/DOCUSATE 8.6-50 MG 1 EACH TABLET PO SCH (09:55)
[2016-11-16 13:12] VITALS: BP 138/76
--- NOTE | 2016-11-16 14:45 | PDOC DISCHARGE SUMMARY ---
Final Diagnosis Discharge Date: 11/16/16 - Final Diagnosis (1) Gestational diabetes mellitus Is this a current diagnosis for this admission?: Yes (2) Vaginal delivery Is this a current diagnosis for this admission?: Yes Discharge Data - Discharge Medication Home Medications: Valacyclovir HCl [Valtrex 500 mg Tablet] 2 tab PO DAILY 10/24/16 Ranitidine HCl [Zantac 75 mg Tablet] 75 mg PO BID 11/03/16 Ibuprofen [Motrin 800 mg Tablet] 800 mg PO Q8HP PRN #90 tablet 11/16/16 Pnv W-O Ca No5/Fe Fumarate/FA [-U Multiple Vitamin Capsule] 1 cap PO DAILY #90 capsule 11/16/16 Reason(s) for Admission: Onset of Labor Procedures: NST, Ultrasound Intrapartum Procedure(s): Spontaneous Vaginal Delivery Complication(s): Laceration-Vaginal Laceration-Degree: 2nd - Data Baby 1 Male at 1 minute: 9 at 5 minutes: 9 Weight: 3025 kg Home with Mother: Yes Complications: No - Diagnosis Test Laboratory: Temp Pulse Resp BP Pulse Ox 97.5 F 69 18 115/59 L 98 11/16/16 08:16 11/16/16 08:16 11/16/16 08:16 11/16/16 08:16 11/16/16 08:16 11/14/16 11/14/16 11/15/16 11:20 12:00 07:08 RBC 4.01 3.61 L Hgb 12.5 11.2 L Hct 36.5 32.9 L Urine Opiates Screen NEGATIVE - Discharge information/Instructions Discharge Activity: Activity As Tolerated, Balance Activity w/Rest, No Lifting Over 10 Pounds, No Lifting/Push/Pulling, Pelvic Rest, No tub bath Discharge Diet: As Tolerated, Regular Disposition: HOME, SELF-CARE [facility]: 4, Weeks Physical Exam (OB) Vital Signs: Temp Pulse Resp BP Pulse Ox 97.5 F 69 18 115/59 L 98 11/16/16 08:16 11/16/16 08:16 11/16/16 08:16 11/16/16 08:16 11/16/16 08:16 Intake & Output 11/15/16 11/16/16 11/17/16 06:59 06:59 06:59 Intake Total 600 500 Balance 600 500 Weight 79.6 kg - General General Appearance: Appears well In distress: None - PIH/Pre-Eclampsia Clonus: Negative - Episiotomy/Laceration Site Condition: Well Approximated - Lochia Lochia Amount: Scant < 10 ml Lochia Color: Rubra/Red - Abdomen Description: Soft Hernia Present: No Fundal Description: Firm, Midline Fundal Height: u/u - u/2 - Respiratory Respiratory Status: No respiratory distress - Extremities Upper extremity: Normal inspection Lower extremities: Normal inspection - Neurological Cognition: Normal Orientation: AAOx4 - Psychological Associated symptoms: Normal affect, Normal mood - bonding well with baby helpful family at bedside
== END 2016-11-16 14:18 | disposition home or self-care (01) | DRG 774 ==
LOC: LC 11:07 → LR 12:00 → 2S 17:11
PROVIDERS: ADMIT Student in an Organized Health Care Education/Training Program; ATTEND Student in an Organized Health Care Education/Training Program
PROC: 10E0XZZ Delivery of Products of Conception, External Approach (ICD-10-PCS; principal; 2016-11-14)
PROC: 0KQM0ZZ Repair Perineum Muscle, Open Approach (ICD-10-PCS; 2016-11-14)
PROC: 4A1HXCZ Monitoring of Products of Conception, Cardiac Rate, External Approach (ICD-10-PCS; 2016-11-14)
DX: O24.429 Gestational diabetes mellitus in childbirth, unspecified control (principal); O98.32 Other infections with a predominantly sexual mode of transmission complicating childbirth; O70.1 Second degree perineal laceration during delivery; A63.0 Anogenital (venereal) warts; A60.00 Herpesviral infection of urogenital system, unspecified; Z3A.40 40 weeks gestation of pregnancy; Z37.0 Single live birth
CPT/HCPCS: 36415; 80307; 81005; 85027; 86592; 86850; 86900; 86901; 88307; J2590; J3490